=== PATIENT | male | born 1930 | race Caucasian/White ===

== ENCOUNTER 2016-07-21 16:22 | Inpatient (IN) | payer MEDICARE, MEDICAID ==
[~2016-07-21] VITALS: Ht 170.2 cm; Wt 83.9 kg
[~2016-07-21 16:22] MED LIST: ALLO300T2 PO; COLC0.6T69 PO; IBUP-1955 PO; OXYC20TA58 PO; RANI75TA PO
[2016-07-21] MEDS ORDERED: LABETALOL 20 MG/4 ML VIAL IV ONE ×2 (16:30→18:30)
[2016-07-21] MEDS ORDERED: NITROGLYCERIN 0.4 MG/TAB BOTTLE SL ONE (16:30)
[2016-07-21] MEDS ORDERED: NITROGLYCERIN 0.4 MG/TAB BOTTLE ONE (16:34)
[2016-07-21] MEDS ORDERED: LABETALOL HCL IV 100MG VIAL ONE (16:35)
[2016-07-21 16:39] LABS: BASOPHILS # (AUTO) 0.1 /CMM (0.0-0.2); BASOPHILS % (AUTO) 1.2 % (0.0-2.0); DIFF TOTAL % 100 %; EOSINOPHILS # (AUTO) 0.2 /CMM (0.0-0.7); HEMATOCRIT 44 % (39-51); HEMOGLOBIN 14.6 g/dL (13.5-17.5); LYMPHOCYTES % (AUTO) 27.3 % (20.0-44.0); MEAN CORPUSCULAR HEMOGLOBIN 28 PG (26.0-33.0); MEAN CORPUSCULAR HGB CONC 33 g/dl (31.0-36.0); MEAN CORPUSCULAR VOLUME 84 fL (80-96); MONOCYTES # (AUTO) 0.6 /CMM (0.1-1.30); MONOCYTES % (AUTO) 5.5 % (2.0-12.0); PLATELET COUNT (AUTO) 300 /CMM (150-450); RED BLOOD CELL COUNT(AUTO) 5.27 MIL/uL (4.5-6.0); WHITE BLOOD COUNT (AUTO) 10.9 K/uL (4.3-11.0)
[2016-07-21 16:49] LABS: ANION GAP 11 (5-14); CALCIUM, SERUM 8.3 mg/dL (8.5-10.1); CARBON DIOXIDE 28 mmol/L (21-32); CHLORIDE 104 mmol/L (98-107); CREATININE 1.1 mg/dL (0.6-1.3); GLUCOSE 127 mg/dL (74-106); SODIUM SERUM 139 mmol/L (136-145); UREA NITROGEN, BLOOD 26 mg/dL (7-18)
[2016-07-21 16:56] LABS: INR 0.94 (0.87-1.13); PROTHROMBIN TIME 9.9 SECS (9.5-12.7)
[2016-07-21 16:57] LABS: TROPONIN I < 0.017 ng/mL (0.00-0.056)
[2016-07-21] MEDS ORDERED: GABA-534 PO (17:32)
[2016-07-21] MEDS ORDERED: FEXO180T94 PO (17:32)
[2016-07-21] MEDS ORDERED: TRAM50TA2 PO (17:32)
[2016-07-21] MEDS ORDERED: VALS80TA2 PO (17:32)
[2016-07-21] MEDS ORDERED: LORA1TAB PO (17:32)
[2016-07-21] MEDS ORDERED: hydrALAZINE HCL IV 20 MG VIAL ONE (18:46)
[2016-07-21] MEDS ORDERED: COLC0.6T69 PO (18:54)
[2016-07-21] MEDS ORDERED: LORAZEPAM 1 MG TABLET PO PRN (19:00)
[2016-07-21] MEDS ORDERED: MAGNESIUM HYDROXIDE 30 ML UDC PO PRN (19:00)
[2016-07-21] MEDS ORDERED: ONDANSETRON HCL/PF 4 MG/2 ML VIAL IVP PRN (19:00)
[2016-07-21] MEDS ORDERED: MORPHINE SULFATE INJ 2 MG/ML DISP.SYRIN IV PRN (19:00)
[2016-07-21] MEDS ORDERED: HYDROCODONE/APAP 5/325MG 1 EACH TABLET PO PRN (19:00)
[2016-07-21] MEDS ORDERED: Z GUARD REMEDY 2 OZ OINT TP PRN (19:00)
[2016-07-21] MEDS ORDERED: MAG HYDROX/AL HYDROX/SIMETH 30 ML UDC PO PRN (19:00)
[2016-07-21] MEDS ORDERED: hydrALAZINE HCL IV 20 MG VIAL IV ONE (19:00)
[2016-07-21] MEDS ORDERED: ACETAMINOPHEN 325 MG TABLET PO PRN (19:00)
[2016-07-21] MEDS ORDERED: NITROGLYCERIN 0.4 MG/TAB BOTTLE SL PRN (19:00)
[2016-07-21 20:45] VITALS: BP 175/76
[2016-07-21 21:00] VITALS: BP 178/76
[2016-07-21] MEDS ORDERED: SIMVASTATIN 20 MG TABLET ONE ×2 (21:33→21:36)
[2016-07-21] MEDS ORDERED: MAG HYDROX/AL HYDROX/SIMETH 30 ML UDC ONE (21:33)
[2016-07-21] MEDS ORDERED: METOPROLOL TARTRATE 25 MG TABLET ONE (21:34)
[2016-07-21] MEDS: SIMVASTATIN 20 MG TABLET PO SCH (21:43)
[2016-07-21] MEDS: METOPROLOL TARTRATE 25 MG TABLET PO SCH (21:43)
[2016-07-21] MEDS ORDERED: ZOLPIDEM TARTRATE 5 MG TABLET ONE (22:47)
[2016-07-21] MEDS: ZOLPIDEM TARTRATE 5 MG TABLET PO PRN (23:01)
[2016-07-22] VITALS (7 sets, daily range): BP systolic 124–174; BP diastolic 53–75
[2016-07-22] MEDS ORDERED: LORAZEPAM 1 MG TABLET ONE (01:50)
[2016-07-22 07:05] LABS: BASOPHILS % (AUTO) 0.4 % (0.0-2.0); DIFF TOTAL % 100 %; EOSINOPHILS # (AUTO) 0.2 /CMM (0.0-0.7); EOSINOPHILS % (AUTO) 2.2 % (0.0-6.0); HEMATOCRIT 43 % (39-51); HEMOGLOBIN 14.3 g/dL (13.5-17.5); LYMPHOCYTES # (AUTO) 1.9 /CMM (0.8-4.8); MEAN CORPUSCULAR HEMOGLOBIN 28 PG (26.0-33.0); MEAN CORPUSCULAR HGB CONC 33 g/dl (31.0-36.0); MEAN CORPUSCULAR VOLUME 85 fL (80-96); MONOCYTES # (AUTO) 0.7 /CMM (0.1-1.30); NEUTROPHILS # (AUTO) 7.1 /CMM (1.8-8.9); NEUTROPHILS % (AUTO) 71.4 % (43.0-81.0); PLATELET COUNT (AUTO) 253 /CMM (150-450); RED BLOOD CELL COUNT(AUTO) 5.12 MIL/uL (4.5-6.0); WHITE BLOOD COUNT (AUTO) 9.9 K/uL (4.3-11.0)
[2016-07-22 07:13] LABS: CALCIUM, SERUM 8.4 mg/dL (8.5-10.1); PHOSPHORUS 3.4 mg/dL (2.5-4.9); POTASSIUM 4.1 mmol/L (3.5-5.1)
[2016-07-22 07:18] LABS: THYROID STIMULATING HORMONE 0.946 uIU/mL (0.358-3.74)
[2016-07-22] MEDS ORDERED: VALSARTAN 80 MG TABLET PO SCH (09:00)
[2016-07-22] MEDS: PANTOPRAZOLE 40 MG TABLET.DR PO SCH (09:44)
[2016-07-22] MEDS: GABAPENTIN 300 MG CAPSULE PO SCH ×3 (09:44→17:02)
[2016-07-22] MEDS: ASPIRIN 81 MG TAB.CHEW PO SCH (09:44)
[2016-07-22] MEDS: ALLOPURINOL 100 MG TABLET PO SCH ×2 (09:45→17:02)
[2016-07-22] MEDS: METOPROLOL TARTRATE 25 MG TABLET PO SCH ×2 (09:45→21:57)
[2016-07-22] MEDS ORDERED: SALINE NASAL SPRAY 0.65% 1 BOTTLE BOTTLE NS PRN (12:00)
[2016-07-22] MEDS: FUROSEMIDE 40 MG/4 ML VIAL IV SCH ×3 (12:36→20:26)
[2016-07-22] MEDS: POTASSIUM CHLORIDE 20 MEQ TAB.PRT.SR PO SCH ×3 (12:36→15:27)
[2016-07-22] MEDS: hydrALAZINE HCL 50 MG TABLET PO SCH ×2 (12:38→17:02)
[2016-07-22] MEDS: ZOLPIDEM TARTRATE 5 MG TABLET PO PRN (21:56)
[2016-07-22] MEDS: SIMVASTATIN 20 MG TABLET PO SCH (21:56)
[2016-07-23 06:44] LABS: BASOPHILS % (AUTO) 0.1 % (0.0-2.0); DIFF TOTAL % 100 %; EOSINOPHILS # (AUTO) 0.2 /CMM (0.0-0.7); EOSINOPHILS % (AUTO) 1.8 % (0.0-6.0); HEMATOCRIT 43 % (39-51); HEMOGLOBIN 14.3 g/dL (13.5-17.5); LYMPHOCYTES % (AUTO) 17.5 % (20.0-44.0); MEAN CORPUSCULAR HEMOGLOBIN 28 PG (26.0-33.0); MEAN CORPUSCULAR HGB CONC 33 g/dl (31.0-36.0); MEAN CORPUSCULAR VOLUME 85 fL (80-96); MONOCYTES # (AUTO) 0.7 /CMM (0.1-1.30); MONOCYTES % (AUTO) 6.5 % (2.0-12.0); NEUTROPHILS # (AUTO) 8.5 /CMM (1.8-8.9); NEUTROPHILS % (AUTO) 74.1 % (43.0-81.0); PLATELET COUNT (AUTO) 287 /CMM (150-450); RED BLOOD CELL COUNT(AUTO) 5.11 MIL/uL (4.5-6.0); WHITE BLOOD COUNT (AUTO) 11.4 K/uL (4.3-11.0)
[2016-07-23 07:02] LABS: TROPONIN I 0.028 ng/mL (0.00-0.056)
[2016-07-23 07:09] LABS: ALBUMIN 3.5 g/dL (3.4-5.0); BILIRUBIN,TOTAL 0.7 mg/dL (0.2-1.0); CALCIUM, SERUM 8.3 mg/dL (8.5-10.1); CREATININE 2.2 mg/dL (0.6-1.3); POTASSIUM 4.7 mmol/L (3.5-5.1); TOTAL PROTEIN, SERUM 6.4 g/dL (6.4-8.2)
[2016-07-23 08:00] VITALS: BP 137/64
[2016-07-23] MEDS ORDERED: ISOSORBIDE DINITRATE (20MG) 20 MG TABLET PO SCH (09:00)
[2016-07-23] MEDS ORDERED: VALSARTAN 80 MG TABLET PO SCH (09:00)
[2016-07-23] MEDS: PANTOPRAZOLE 40 MG TABLET.DR PO SCH (09:00)
[2016-07-23] MEDS: ASPIRIN 81 MG TAB.CHEW PO SCH (09:00)
[2016-07-23] MEDS: GABAPENTIN 300 MG CAPSULE PO SCH ×2 (09:00→13:00)
[2016-07-23] MEDS: hydrALAZINE HCL 50 MG TABLET PO SCH ×2 (09:00→13:00)
[2016-07-23 09:01] VITALS: BP 137/64
[2016-07-23] MEDS: METOPROLOL TARTRATE 25 MG TABLET PO SCH (09:01)
[2016-07-23] MEDS: ALLOPURINOL 100 MG TABLET PO SCH (09:01)
[2016-07-23] MEDS ORDERED: Isosorbide Dinitrate PO (12:13)
[2016-07-23] MEDS ORDERED: Nitroglycerin SL (12:13)
[2016-07-23] MEDS ORDERED: Hydralazine Hcl PO (12:13)
[2016-07-23] MEDS ORDERED: METO25TA20 PO (12:13)
== END 2016-07-23 14:46 | disposition home or self-care (01) | DRG 302 ==
LOC: ER 16:24 → TELE 20:37 → MED 07-22 13:20
DX: I25.10 Atherosclerotic heart disease of native coronary artery without angina pectoris (principal); N17.0 Acute kidney failure with tubular necrosis; I50.33 Acute on chronic diastolic (congestive) heart failure; I16.0 Hypertensive urgency; E66.9 Obesity, unspecified; M10.9 Gout, unspecified; Z95.1 Presence of aortocoronary bypass graft; Z87.891 Personal history of nicotine dependence; E66.8 Other obesity; I11.0 Hypertensive heart disease with heart failure; I70.1 Atherosclerosis of renal artery
CPT/HCPCS: 36415; 71010-TC; 80048-TC; 80053-TC; 80061-TC; 82962-TC; 83735-TC; 83880; 84100-TC; 84439-TC; 84443-TC; 84484-TC; 85025-TC; 85730-TC; 87081-TC; 93307-TC; 94799-TC; A4606; J0360; J1940; J3490; Z7610

== ENCOUNTER 2016-08-05 13:36 | Inpatient (IN) | payer MEDICARE, MEDICAID ==
[~2016-08-05] VITALS: Ht 160 cm; Wt 94.8 kg
[~2016-08-05 13:36] MED LIST changes: +FEXO180T94 PO; +GABA-534 PO; +Hydralazine Hcl PO; +Isosorbide Dinitrate PO; +LORA1TAB PO; +METO25TA20 PO; +Nitroglycerin SL; -OXYC20TA58 PO; -RANI75TA PO; +TRAM50TA2 PO
[2016-08-05] MEDS ORDERED: LORAZEPAM INJ 2 MG/ML VIAL ONE (13:58)
[2016-08-05] MEDS ORDERED: LORAZEPAM INJ 2 MG/ML VIAL IV ONE (14:00)
[2016-08-05 14:14] LABS: BASOPHILS % (AUTO) 0.3 % (0.0-2.0); DIFF TOTAL % 100 %; EOSINOPHILS # (AUTO) 0.2 /CMM (0.0-0.7); EOSINOPHILS % (AUTO) 2.7 % (0.0-6.0); HEMATOCRIT 36 % (39-51); HEMOGLOBIN 12.2 g/dL (13.5-17.5); LYMPHOCYTES # (AUTO) 1.3 /CMM (0.8-4.8); LYMPHOCYTES % (AUTO) 15.8 % (20.0-44.0); MEAN CORPUSCULAR HEMOGLOBIN 28 PG (26.0-33.0); MEAN CORPUSCULAR HGB CONC 34 g/dl (31.0-36.0); MEAN CORPUSCULAR VOLUME 83 fL (80-96); MONOCYTES # (AUTO) 0.5 /CMM (0.1-1.30); NEUTROPHILS # (AUTO) 6.5 /CMM (1.8-8.9); NEUTROPHILS % (AUTO) 75.2 % (43.0-81.0); PLATELET COUNT (AUTO) 309 /CMM (150-450); RED BLOOD CELL COUNT(AUTO) 4.36 MIL/uL (4.5-6.0); WHITE BLOOD COUNT (AUTO) 8.5 K/uL (4.3-11.0)
[2016-08-05] MEDS ORDERED: METO25TA20 PO (14:18)
[2016-08-05] MEDS ORDERED: TAMS-12 PO (14:18)
[2016-08-05] MEDS ORDERED: HYDR-548 PO (14:18)
[2016-08-05] MEDS ORDERED: HYDR100T27 PO (14:18)
[2016-08-05] MEDS ORDERED: FINA5TAB11 PO (14:18)
[2016-08-05] MEDS ORDERED: ISOS40TA16 PO (14:18)
[2016-08-05] MEDS ORDERED: RANI150T8 PO (14:18)
[2016-08-05 14:24] LABS: CALCIUM, SERUM 8.4 mg/dL (8.5-10.1); CREATININE 1.3 mg/dL (0.6-1.3); POTASSIUM 4.5 mmol/L (3.5-5.1)
[2016-08-05 14:27] LABS: INR 0.95 (0.87-1.13)
[2016-08-05 14:31] LABS: TROPONIN I 0.055 ng/mL (0.00-0.056)
[2016-08-05 14:36] LABS: ALBUMIN 3.3 g/dL (3.4-5.0); BILIRUBIN,DIRECT 0.1 mg/dL (0.0-0.2); BILIRUBIN,TOTAL 0.3 mg/dL (0.2-1.0); INDIRECT BILIRUBIN 0.2 mg/dL (0.0-1.1); TOTAL PROTEIN, SERUM 6.2 g/dL (6.4-8.2)
[2016-08-05] MEDS ORDERED: ISOS20TA8 PO (14:40)
[2016-08-05] MEDS ORDERED: FUROSEMIDE 40 MG/4 ML VIAL ONE (14:54)
[2016-08-05] MEDS ORDERED: FUROSEMIDE 40 MG/4 ML VIAL IV ONE (15:00)
[2016-08-05] MEDS ORDERED: ACETAMINOPHEN ES 500 MG TABLET PO PRN (17:30)
[2016-08-05] MEDS: AMYLASE/LIPASE/PROTEASE 1 CAP CAPSULE.DR PO SCH (18:48)
[2016-08-05] MEDS ORDERED: Magnesium 1 GM/2 ML VIAL IV ONE (19:30)
[2016-08-05 20:00] VITALS: BP_SYST 177; BP_SYST 179; BP_DIAS 80
[2016-08-05] MEDS ORDERED: Magnesium 1GM/D5W 100ML PREMIX 100 ML IV SCH ×2 (20:00)
[2016-08-05] MEDS ORDERED: TRAMADOL HCL 50 MG TABLET PO PRN (20:30)
[2016-08-05] MEDS ORDERED: HOME MED MISCELLANEOUS XX SCH (20:30)
[2016-08-05] MEDS ORDERED: HYDROCODONE/APAP 10/325MG 1 EA TABLET PO PRN (20:30)
[2016-08-05] MEDS: LORAZEPAM 1 MG TABLET PO PRN (20:52)
[2016-08-05] MEDS: FAMOTIDINE (20 MG) 20 MG TABLET PO SCH (20:52)
[2016-08-05] MEDS: DILTIAZEM HCL CD 120 MG PO SCH (20:53)
[2016-08-05] MEDS: IPRATROPIUM NEB FS 0.5 MG/2.5 ML AMPUL.NEB NEB SCH (23:22)
[2016-08-05] MEDS ORDERED: ALBUTEROL FS 2.5 MG/0.5 ML VIAL.NEB NEB PRN (23:30)
[2016-08-05] MEDS ORDERED: LORAZEPAM 1 MG TABLET PO ONE (23:30)
[2016-08-06] VITALS (8 sets, daily range): BP systolic 128–181; BP diastolic 57–98
[2016-08-06] MEDS ORDERED: FUROSEMIDE 40 MG/4 ML VIAL IV ONE (00:30)
[2016-08-06 06:45] LABS: BASOPHILS % (AUTO) 0.4 % (0.0-2.0); DIFF TOTAL % 100 %; EOSINOPHILS # (AUTO) 0.3 /CMM (0.0-0.7); EOSINOPHILS % (AUTO) 3.5 % (0.0-6.0); HEMATOCRIT 39 % (39-51); HEMOGLOBIN 12.8 g/dL (13.5-17.5); LYMPHOCYTES % (AUTO) 23.5 % (20.0-44.0); MEAN CORPUSCULAR HEMOGLOBIN 28 PG (26.0-33.0); MEAN CORPUSCULAR HGB CONC 33 g/dl (31.0-36.0); MEAN CORPUSCULAR VOLUME 84 fL (80-96); MONOCYTES # (AUTO) 0.6 /CMM (0.1-1.30); MONOCYTES % (AUTO) 6.8 % (2.0-12.0); NEUTROPHILS # (AUTO) 5.6 /CMM (1.8-8.9); NEUTROPHILS % (AUTO) 65.8 % (43.0-81.0); PLATELET COUNT (AUTO) 316 /CMM (150-450); RED BLOOD CELL COUNT(AUTO) 4.64 MIL/uL (4.5-6.0); WHITE BLOOD COUNT (AUTO) 8.5 K/uL (4.3-11.0)
[2016-08-06 07:07] LABS: CALCIUM, SERUM 8.3 mg/dL (8.5-10.1); CREATININE 1.5 mg/dL (0.6-1.3); POTASSIUM 4.1 mmol/L (3.5-5.1)
[2016-08-06] MEDS: IPRATROPIUM NEB FS 0.5 MG/2.5 ML AMPUL.NEB NEB SCH ×3 (07:33→23:29)
[2016-08-06] MEDS: FLUTICASONE/SALMETEROL DISKUS IH SCH (08:34)
[2016-08-06] MEDS: SPIRONOLACTONE 25 MG TABLET PO SCH (08:35)
[2016-08-06] MEDS: AMYLASE/LIPASE/PROTEASE 1 CAP CAPSULE.DR PO SCH ×3 (08:35→17:21)
[2016-08-06] MEDS: HYDROCHLOROTHIAZIDE 25 MG TABLET PO SCH (08:35)
[2016-08-06] MEDS: ALLOPURINOL 100 MG TABLET PO SCH ×2 (08:35→17:21)
[2016-08-06] MEDS: FAMOTIDINE (20 MG) 20 MG TABLET PO SCH ×2 (08:35→21:16)
[2016-08-06] MEDS: TAMSULOSIN 0.4 MG CAP.SR.24H PO SCH (08:36)
[2016-08-06] MEDS: FINASTERIDE (5 MG) 5 MG TABLET PO SCH (08:36)
[2016-08-06] MEDS: ISOSORBIDE DINITRATE (20MG) 20 MG TABLET PO SCH (08:36)
[2016-08-06] MEDS: hydrALAZINE HCL 50 MG TABLET PO SCH ×2 (08:36→17:25)
[2016-08-06] MEDS ORDERED: METOPROLOL TARTRATE 25 MG TABLET PO SCH (09:00)
[2016-08-06] MEDS ORDERED: ENALAPRIL MALEATE (10 MG) 10 MG TABLET PO SCH (09:00)
[2016-08-06] MEDS: VALSARTAN 80 MG TABLET PO SCH (09:58)
[2016-08-06] MEDS: LORAZEPAM 1 MG TABLET PO PRN ×2 (09:59→19:32)
[2016-08-06] MEDS: METOPROLOL TARTRATE 25 MG TABLET PO SCH ×2 (09:59→17:25)
[2016-08-06] MEDS: DILTIAZEM HCL CD 120 MG PO SCH (21:16)
[2016-08-06] MEDS ORDERED: Magnesium 1GM/D5W 100ML PREMIX 100 ML IV ONE ×2 (21:39→22:46)
[2016-08-06] MEDS ORDERED: MIRTAZAPINE 15 MG TABLET ONE (21:40)
[2016-08-06] MEDS ORDERED: MIRTAZAPINE 15 MG TABLET PO SCH (22:00)
[2016-08-06] MEDS: Magnesium 1GM/D5W 100ML PREMIX 100 ML IV SCH ×2 (22:10→23:04)
[2016-08-07 06:54] LABS: BASOPHILS % (AUTO) 0.4 % (0.0-2.0); DIFF TOTAL % 100 %; EOSINOPHILS # (AUTO) 0.4 /CMM (0.0-0.7); EOSINOPHILS % (AUTO) 3.5 % (0.0-6.0); HEMATOCRIT 37 % (39-51); HEMOGLOBIN 12.4 g/dL (13.5-17.5); LYMPHOCYTES # (AUTO) 1.7 /CMM (0.8-4.8); LYMPHOCYTES % (AUTO) 16.8 % (20.0-44.0); MEAN CORPUSCULAR HEMOGLOBIN 28 PG (26.0-33.0); MEAN CORPUSCULAR HGB CONC 33 g/dl (31.0-36.0); MEAN CORPUSCULAR VOLUME 84 fL (80-96); MONOCYTES # (AUTO) 0.6 /CMM (0.1-1.30); MONOCYTES % (AUTO) 6.4 % (2.0-12.0); NEUTROPHILS # (AUTO) 7.3 /CMM (1.8-8.9); NEUTROPHILS % (AUTO) 72.9 % (43.0-81.0); PLATELET COUNT (AUTO) 305 /CMM (150-450); RED BLOOD CELL COUNT(AUTO) 4.43 MIL/uL (4.5-6.0)
[2016-08-07 07:21] LABS: ALBUMIN 3.2 g/dL (3.4-5.0); BILIRUBIN,TOTAL 0.3 mg/dL (0.2-1.0); CALCIUM, SERUM 8.2 mg/dL (8.5-10.1); CREATININE 1.6 mg/dL (0.6-1.3); PHOSPHORUS 3.9 mg/dL (2.5-4.9); POTASSIUM 3.8 mmol/L (3.5-5.1); TOTAL PROTEIN, SERUM 6.1 g/dL (6.4-8.2)
[2016-08-07] MEDS: IPRATROPIUM NEB FS 0.5 MG/2.5 ML AMPUL.NEB NEB SCH ×2 (07:34→16:18)
[2016-08-07 07:45] VITALS: BP 147/71
[2016-08-07 08:00] VITALS: BP 147/71
[2016-08-07] MEDS: ALLOPURINOL 100 MG TABLET PO SCH ×2 (08:50→16:32)
[2016-08-07] MEDS: FAMOTIDINE (20 MG) 20 MG TABLET PO SCH (08:50)
[2016-08-07] MEDS: AMYLASE/LIPASE/PROTEASE 1 CAP CAPSULE.DR PO SCH ×3 (08:50→17:41)
[2016-08-07] MEDS: TAMSULOSIN 0.4 MG CAP.SR.24H PO SCH (08:50)
[2016-08-07] MEDS: FINASTERIDE (5 MG) 5 MG TABLET PO SCH (08:50)
[2016-08-07] MEDS: HYDROCHLOROTHIAZIDE 25 MG TABLET PO SCH (08:51)
[2016-08-07] MEDS: METOPROLOL TARTRATE 25 MG TABLET PO SCH ×2 (08:52→16:32)
[2016-08-07] MEDS: SPIRONOLACTONE 25 MG TABLET PO SCH (08:52)
[2016-08-07] MEDS: hydrALAZINE HCL 50 MG TABLET PO SCH ×2 (08:52→16:32)
[2016-08-07] MEDS: ISOSORBIDE DINITRATE (20MG) 20 MG TABLET PO SCH (08:52)
[2016-08-07] MEDS: VALSARTAN 80 MG TABLET PO SCH (08:52)
[2016-08-07] MEDS: FLUTICASONE/SALMETEROL DISKUS IH SCH (08:54)
[2016-08-07] MEDS ORDERED: BUMETANIDE INJ 8 MG in IV NS 0.9% 48 ML IV ONE (09:00)
[2016-08-07] MEDS: POTASSIUM CHLORIDE 20 MEQ TAB.PRT.SR PO SCH ×3 (09:13→11:21)
[2016-08-07] MEDS ORDERED: ASPI81TA2 PO (09:29)
[2016-08-07] MEDS ORDERED: ATOR40TA GT (09:29)
[2016-08-07 16:00] VITALS: BP_SYST 132; BP_SYST 136; BP_DIAS 62; BP_DIAS 64
[2016-08-07 16:32] VITALS: BP 132/64
== END 2016-08-07 18:00 | disposition home or self-care (01) | DRG 304 ==
LOC: ER 13:38 → TELE 16:22 → MED 08-06 10:01
PROVIDERS: ADMIT Family Medicine; ATTEND Family Medicine
DX: I16.0 Hypertensive urgency (principal); I50.43 Acute on chronic combined systolic (congestive) and diastolic (congestive) heart failure; N17.0 Acute kidney failure with tubular necrosis; K90.9 Intestinal malabsorption, unspecified; J98.11 Atelectasis; I13.0 Hypertensive heart and chronic kidney disease with heart failure and stage 1 through stage 4 chronic kidney disease, or unspecified chronic kidney disease; N18.9 Chronic kidney disease, unspecified; Z96.659 Presence of unspecified artificial knee joint; Z95.1 Presence of aortocoronary bypass graft; F17.210 Nicotine dependence, cigarettes, uncomplicated; F41.0 Panic disorder [episodic paroxysmal anxiety]; E78.5 Hyperlipidemia, unspecified; G47.33 Obstructive sleep apnea (adult) (pediatric); K21.9 Gastro-esophageal reflux disease without esophagitis; Z91.19 Patient's noncompliance with other medical treatment and regimen; H91.90 Unspecified hearing loss, unspecified ear; I25.119 Atherosclerotic heart disease of native coronary artery with unspecified angina pectoris; M10.9 Gout, unspecified; M54.5 Low back pain; M81.0 Age-related osteoporosis without current pathological fracture; N40.0 Benign prostatic hyperplasia without lower urinary tract symptoms; Z86.73 Personal history of transient ischemic attack (TIA), and cerebral infarction without residual deficits
CPT/HCPCS: 36415; 71010-TC; 80048-TC; 80053-TC; 80076-TC; 83540-TC; 83735-TC; 83880; 84100-TC; 84484-TC; 85025-TC; 85730-TC; 87081-TC; 94799-TC; A4216; A4606; J1940; J2060; J3475; J3490; Z7610

== ENCOUNTER 2017-01-06 11:44 | Inpatient (IN) | payer MEDICARE, MEDICAID ==
[~2017-01-06] VITALS: Ht 167.6 cm; Wt 86.2 kg
[~2017-01-06 11:44] MED LIST changes: +ASPI81TA2 PO; +ATOR40TA GT; -COLC0.6T69 PO; -FEXO180T94 PO; +FINA5TAB11 PO; -GABA-534 PO; +HYDR-548 PO; +HYDR100T27 PO; -Hydralazine Hcl PO; -IBUP-1955 PO; +ISOS20TA8 PO; -Isosorbide Dinitrate PO; -METO25TA20 PO; -Nitroglycerin SL; +RANI150T8 PO; +TAMS-12 PO
--- NOTE | 2017-01-06 11:50 | NUR ---
PATIENT BIB RA D/T CHEST PAIN SINCE 0700. PATIENT RECEIVED 2 SPRAYS NITRO AND 162MG ASA. PATIENT IS A/OX 4. BREATHING EVEN AND UNLABORED. SAFETY AND COMFORT MEASURES IN PLACE. AWAITING MD ORDERS.
[2017-01-06] MEDS ORDERED: LORAZEPAM 1 MG TABLET ONE (11:59)
[2017-01-06] MEDS ORDERED: ASPIRIN 325 MG TABLET ONE (11:59)
[2017-01-06] MEDS ORDERED: NITROGLYCERIN 0.4 MG/TAB BOTTLE SL ONE (12:00)
[2017-01-06] MEDS ORDERED: NITROGLYCERIN 0.4 MG/TAB BOTTLE ONE (12:00)
[2017-01-06] MEDS ORDERED: ASPIRIN 325 MG TABLET PO ONE (12:00)
[2017-01-06] MEDS ORDERED: LORAZEPAM 1 MG TABLET PO ONE (12:00)
--- NOTE | 2017-01-06 12:00 | NUR ---
PATIENT DENIES ANY CHEST PAIN AT THIS TIME. BLOOD PRESSURE IS 102/49. NITRO SL NOT ADMINSITERED AT THIS TIME.
[2017-01-06 12:06] LABS: BASOPHILS # (AUTO) 0.1 /CMM (0.0-0.2); BASOPHILS % (AUTO) 1.2 % (0.0-2.0); EOSINOPHILS # (AUTO) 0.2 /CMM (0.0-0.7); EOSINOPHILS % (AUTO) 2.4 % (0.0-6.0); HEMATOCRIT 38 % (39-51); HEMOGLOBIN 12.4 g/dL (13.5-17.5); LYMPHOCYTES % (AUTO) 31.3 % (20.0-44.0); MEAN CORPUSCULAR HEMOGLOBIN 27 PG (26.0-33.0); MEAN CORPUSCULAR HGB CONC 33 g/dl (31.0-36.0); MEAN CORPUSCULAR VOLUME 82 fL (80-96); MONOCYTES # (AUTO) 0.5 /CMM (0.1-1.30); MONOCYTES % (AUTO) 5.6 % (2.0-12.0); NEUTROPHILS # (AUTO) 5.8 /CMM (1.8-8.9); NEUTROPHILS % (AUTO) 59.5 % (43.0-81.0); PLATELET COUNT (AUTO) 353 /CMM (150-450); RDW COEFFICIENT OF VARIATION 13.6 (11.5-15.0); RED BLOOD CELL COUNT(AUTO) 4.61 MIL/uL (4.5-6.0); WHITE BLOOD COUNT (AUTO) 9.6 K/uL (4.3-11.0)
[2017-01-06 12:20] LABS: INR 0.97 (0.87-1.13); PROTHROMBIN TIME 10.1 SECS (9.5-12.7)
[2017-01-06 12:24] LABS: TROPONIN I < 0.017 ng/mL (0.00-0.056)
[2017-01-06 12:29] LABS: CALCIUM, SERUM 8.2 mg/dL (8.5-10.1); CARBON DIOXIDE 24 mmol/L (21-32); CHLORIDE 110 mmol/L (98-107); CREATININE 1.5 mg/dL (0.6-1.3); GLUCOSE 176 mg/dL (74-106); POTASSIUM 4.1 mmol/L (3.5-5.1); SODIUM SERUM 141 mmol/L (136-145); UREA NITROGEN, BLOOD 22 mg/dL (7-18)
[2017-01-06 12:31] LABS: B-TYPE NATRIURETIC PEPTIDE 790 PG/ML (0-125)
--- NOTE | 2017-01-06 12:57 | NUR ---
CALLED , TRANSFERRED CALL TO
--- NOTE | 2017-01-06 13:42 | NUR ---
REPORT GIVEN TO SHAINA CORRAL. PATIENT TO BE ADMITTED TO ROOM 113-1.
--- NOTE | 2017-01-06 13:51 | NUR ---
PATIENT TRANSFERRED TO [facility], VIA STRETCHER WITH RN AND EMT.
[2017-01-06 14:00] VITALS: BP 152/60
--- NOTE | 2017-01-06 14:00 | NUR ---
RN NOTES RECEIVED PT IN ROOM 113-1 FROM ER, PT IS A/Ox3, RESPIRATION EVEN AND UNLABORED, PLACE ON 2L O3 N/C FOR COMFORT, ON TELE PT IS SR WITH FIRST DEGREE AVB, IN 70'S, DENIES ANY CHEST PAIN AT THIS TIME, L AC IV SITE #20 CDI. R EYE REDNESS NOTED, PICTURE TAKEN , NO SKIN ISSUE NOTED , ORIENTED TO ROOM AND SURROUNDING , SR UP x3, CALL LIGHT WITHIN EASY REACH, CONTINUE TO MONITOR PT CLOSELY AND NOTIFY MD FOR ANY SIGNIFICANT CHANGES .
[2017-01-06 15:30] LABS: MAGNESIUM 1.6 mg/dL (1.8-2.4); PHOSPHORUS 2.4 mg/dL (2.5-4.9)
[2017-01-06 15:32] LABS: THYROID STIMULATING HORMONE 0.779 uIU/mL (0.358-3.74)
[2017-01-06] MEDS: FUROSEMIDE 20 MG/2 ML VIAL IV SCH ×2 (15:33→16:58)
[2017-01-06 16:00] VITALS: BP 141/56
[2017-01-06] MEDS ORDERED: HYDROCODONE/APAP 10/325MG 1 EA TABLET PO PRN (16:00)
[2017-01-06] MEDS ORDERED: TRAMADOL HCL 50 MG TABLET PO PRN (16:00)
[2017-01-06] MEDS ORDERED: LORAZEPAM 1 MG TABLET PO PRN ×2 (16:00)
[2017-01-06] MEDS: hydrALAZINE HCL 50 MG TABLET PO SCH (16:58)
--- NOTE | 2017-01-06 18:54 | NUR ---
RN NOTES PT STABLE ,DENICE ANY DISTRESS , RESPIRATION EVEN AND UNLABORED ,NO CHANGES NOTED .
[2017-01-06 20:00] VITALS: BP 150/60
--- NOTE | 2017-01-06 20:00 | NUR ---
RECEIVED PATIENT IN BED, PATIENT A&O X4, MOSTLY ROMANIAN SPEAKING WITH DAUGHTER AT THE BEDSIDE. VSS, AFEBRILE, NO DISTRESS NOTED SAT. 95% ON 2L VIA NC. EDUCATION/ INSTRUCTIONS GIVEN TO THE PATIENT AND A DAUGHTER, QUESTIONS ANSWERED, WENT OVER HOME MEDS NEES TO FOLLOW UP W/ A PHYSICIAN.
[2017-01-06] MEDS ORDERED: Magnesium 1GM/D5W 100ML PREMIX PIGGYBACK IV ONE (20:30)
[2017-01-06] MEDS ORDERED: NEUTRA PHOS 1 POWD.PACKET PO ONE (20:30)
--- NOTE | 2017-01-06 20:30 | NUR ---
DR. KAUR NOTIFIED OF LABS RESULTS, ORDERS RECEIVED
[2017-01-06] MEDS ORDERED: SECONDARY IV SET 1 EA INFUS.SET MC ONE (20:32)
[2017-01-06] MEDS ORDERED: IV NS 0.9% 250 ML IV ONE (20:32)
[2017-01-06] MEDS: FAMOTIDINE (20 MG) 20 MG TABLET PO SCH (20:39)
[2017-01-06] MEDS: GABAPENTIN 300 MG CAPSULE PO SCH (20:39)
[2017-01-06] MEDS ORDERED: ATORVASTATIN 40 MG TABLET GT SCH (22:00)
[2017-01-07] VITALS (8 sets, daily range): BP systolic 114–167; BP diastolic 48–75
--- NOTE | 2017-01-07 | NUR ---
ATIVAN IS GIVEN FOR SLEEP ORDERED AND FOR PATIENT REQUEST CONTINUE TO MONITOR
--- NOTE | 2017-01-07 08:00 | NUR ---
COAL DELIVERER: PT.IS A/OX3, NO C/O, NO ANY PAIN, O2SAT. WNL, SR, BP 167/75, I/O -1.1L, IS IN ROOM, UPDATED WITH PT.CURRENT CONDITION, VS, I/O, 2DECHO PENDING, MEDS. OK TO ORDER LABS FOR TODAY AFTER 2GM MG IV DOSE. SEE NEW ORDERS
[2017-01-07] MEDS: FUROSEMIDE 20 MG/2 ML VIAL IV SCH ×2 (08:07→17:28)
[2017-01-07] MEDS: FAMOTIDINE (20 MG) 20 MG TABLET PO SCH (08:08)
[2017-01-07] MEDS: hydrALAZINE HCL 50 MG TABLET PO SCH ×2 (08:08→17:28)
[2017-01-07] MEDS: GABAPENTIN 300 MG CAPSULE PO SCH ×3 (08:08→17:28)
[2017-01-07] MEDS: ALLOPURINOL 100 MG TABLET PO SCH ×2 (08:08→17:28)
--- NOTE | 2017-01-07 08:45 | NUR ---
RN GODFREY: PT.DAUGHTER CALLED, UPDATED WITH PT.CONDITION, VS, ORDERS, VISIT, POC
[2017-01-07] MEDS ORDERED: FINASTERIDE (5 MG) 5 MG TABLET PO SCH (09:00)
[2017-01-07] MEDS ORDERED: NEUTRA PHOS 1 POWD.PACKET PO ONE (09:00)
[2017-01-07] MEDS ORDERED: TAMSULOSIN 0.4 MG CAP.SR.24H PO SCH (09:00)
[2017-01-07] MEDS ORDERED: ASPIRIN 81 MG TAB.CHEW PO SCH (09:00)
[2017-01-07] MEDS ORDERED: ISOSORBIDE DINITRATE (20MG) 20 MG TABLET PO SCH (09:00)
[2017-01-07] MEDS ORDERED: Magnesium 1GM/D5W 100ML PREMIX PIGGYBACK IV ONE (09:00)
[2017-01-07] MEDS ORDERED: LOSARTAN/HCTZ 50-12.5MG/ 1 EA TABLET PO SCH (09:00)
[2017-01-07] MEDS ORDERED: CARVEDILOL 6.25 MG TABLET PO SCH (09:00)
[2017-01-07] MEDS ORDERED: HYDR-4077 PO (09:03)
[2017-01-07] MEDS ORDERED: LOSA1TAB3 PO (09:03)
[2017-01-07] MEDS ORDERED: HYDR-3658 PO (09:03)
[2017-01-07] MEDS ORDERED: ISOS20TA8 PO (09:03)
[2017-01-07] MEDS ORDERED: LORA1TAB PO (09:03)
[2017-01-07] MEDS ORDERED: FAMO20TA80 PO (09:03)
[2017-01-07] MEDS ORDERED: CARV6.252 PO (09:03)
[2017-01-07] MEDS ORDERED: FURO10VI PO (09:03)
[2017-01-07] MEDS ORDERED: FINA5TAB3 PO (09:03)
[2017-01-07] MEDS ORDERED: GABA300C PO (09:03)
[2017-01-07] MEDS ORDERED: TAMS-12 PO (09:03)
[2017-01-07] MEDS ORDERED: TRAM50TA2 PO (09:03)
--- NOTE | 2017-01-07 10:10 | NUR ---
RN GODFREY: IS IN ROOM, UPDATED WITH ALL ABOVE, NEW MEDS, AGREE FOR D/C
[2017-01-07] MEDS ORDERED: CLOPIDOGREL BISULFATE 75 MG TABLET PO SCH (11:00)
[2017-01-07 11:20] LABS: CHOLESTEROL 196 mg/dL (<200); HDL CHOLESTEROL 23 mg/dL (40-60); LDL 95 mg/dL (0-99); TRIGLYCERIDES 331 mg/dL (30-150)
--- NOTE | 2017-01-07 14:20 | NUR ---
RN GODFREY: pt.is A/Ox3, no c/o, no pain, SR, SBP over 100, below 150, O2sat. WNL, got d/c instructions
--- NOTE | 2017-01-07 18:00 | NUR ---
RN GODFREY: pt.got d/c package, instructions, list of meds was rechecked (Dr.Koshkaryan harrell Plavix, new), pt.confirmed: getting plavix 75mg PO daily, same dose, aware re: new meds, refused vaccination, checked notes: pt. needs to visit in 4 days, pt.daughter is in room/aware for above, VSS, no c/o now
== END 2017-01-07 18:31 | disposition home or self-care (01) | DRG 291 ==
LOC: ER 11:45 → TELE1 13:19
PROVIDERS: ADMIT Family Medicine; ATTEND Family Medicine
DX: I13.0 Hypertensive heart and chronic kidney disease with heart failure and stage 1 through stage 4 chronic kidney disease, or unspecified chronic kidney disease (principal); I50.33 Acute on chronic diastolic (congestive) heart failure; K90.9 Intestinal malabsorption, unspecified; I50.1 Left ventricular failure, unspecified; I16.0 Hypertensive urgency; E11.22 Type 2 diabetes mellitus with diabetic chronic kidney disease; E78.5 Hyperlipidemia, unspecified; I25.119 Atherosclerotic heart disease of native coronary artery with unspecified angina pectoris; J44.9 Chronic obstructive pulmonary disease, unspecified; N18.9 Chronic kidney disease, unspecified; M81.0 Age-related osteoporosis without current pathological fracture; Z87.891 Personal history of nicotine dependence; Z91.19 Patient's noncompliance with other medical treatment and regimen; Z95.1 Presence of aortocoronary bypass graft; Z86.73 Personal history of transient ischemic attack (TIA), and cerebral infarction without residual deficits; Z98.61 Coronary angioplasty status; K21.9 Gastro-esophageal reflux disease without esophagitis; I27.2 Other secondary pulmonary hypertension; F41.0 Panic disorder [episodic paroxysmal anxiety]; E83.42 Hypomagnesemia; E11.51 Type 2 diabetes mellitus with diabetic peripheral angiopathy without gangrene; M17.0 Bilateral primary osteoarthritis of knee; F03.90 Unspecified dementia, unspecified severity, without behavioral disturbance, psychotic disturbance, mood disturbance, and anxiety; G47.30 Sleep apnea, unspecified; H91.90 Unspecified hearing loss, unspecified ear; M10.9 Gout, unspecified; N40.0 Benign prostatic hyperplasia without lower urinary tract symptoms; Z96.652 Presence of left artificial knee joint; F43.10 Post-traumatic stress disorder, unspecified
CPT/HCPCS: 36415; 71010-TC; 80048-TC; 80061-TC; 83735-TC; 83880; 84100-TC; 84443-TC; 84484-TC; 85025-TC; 85730-TC; 87081-TC; 93307-TC; A4606; A6402; J1940; J3475; J7050; Z7610

== ENCOUNTER 2019-08-16 20:15 | Inpatient (IN) | payer MEDICARE, MEDICAID ==
[~2019-08-16] VITALS: Ht 165.1 cm; Wt 81.2 kg
[~2019-08-16 20:15] MED LIST changes: +ASPI-1169 PO; -ASPI81TA2 PO; +FAMO20TA80 PO; +FINA5TAB3 PO; +FURO10VI PO; +GABA300C PO; +HYDR-3980 PO; +HYDR-4077 PO; +HYDR-4354 PO; -HYDR-548 PO; +LOSA1TAB3 PO
--- NOTE | 2019-08-16 20:43 | NUR ---
BIBRA39. RESOLVED CHEST PAIN. TOOK 1 NITRO SL @ 6PM. WEAKNESS & DIZZYNESS AFTER TAKING VALIUM AT 6PM. DENIES SOB. DENIES ABDOMINAL PAIN, N/V. SKIN WARM, DRY, INTACT. NO ACUTE DISTRESS NOTED, NO OTHER MEDICAL COMPLAINTS AT THIS TIME. FAMILY AT BEDSIDE. ON MONITOR AND READY FOR EVAL.
--- NOTE | 2019-08-16 21:05 | NUR ---
URINE SENT TO STAT LAB
[2019-08-16] MEDS ORDERED: LIDOCAINE 2% JEL UROJET 10 ML MM ONE ×2 (21:20→21:30)
[2019-08-16 21:30] LABS: BASOPHILS # (AUTO) 0.2 /CMM (0.0-0.2); BASOPHILS % (AUTO) 1.2 % (0.0-2.0); EOSINOPHILS % (AUTO) 1.3 % (0.0-6.0); LYMPHOCYTES # (AUTO) 1.2 /CMM (0.8-4.8); LYMPHOCYTES % (AUTO) 9.6 % (20.0-44.0); MEAN CORPUSCULAR HGB CONC 32 g/dl (31.0-36.0); MEAN CORPUSCULAR VOLUME 84 fL (80-96); MONOCYTES # (AUTO) 0.4 /CMM (0.1-1.30); MONOCYTES % (AUTO) 3.3 % (2.0-12.0); NEUTROPHILS % (AUTO) 84.6 % (43.0-81.0); PLATELET COUNT (AUTO) 327 /CMM (150-450); RED BLOOD CELL COUNT(AUTO) 2.13 MIL/uL (4.5-6.0)
[2019-08-16 21:31] LABS: APPEARANCE,URINE Clear (CLEAR); BILIRUBIN,URINE Negative (NEGATIVE); BLOOD, URINE Negative Ery/uL (NEGATIVE); COLOR,URINE Yellow (YELLOW); KETONES,URINE Negative (NEGATIVE); LEUKOCYTE ESTERASE ,URINE Negative (NEGATIVE); NITRITE, URINE Negative (NEGATIVE); PROTEIN,URINE Negative (NEGATIVE); UGLUCOSE Negative (NEGATIVE); UROBILINOGEN,URINE 0.2 EU/dL (0.2)
[2019-08-16 21:43] LABS: HEMATOCRIT 18 % (39-51); HEMOGLOBIN 5.7 g/dL (13.5-17.5)
--- NOTE | 2019-08-16 21:43 | NUR ---
CRITICAL; DR. ROWLEY AWARE ORDER. HGB 5.7 HCT 18
--- NOTE | 2019-08-16 21:47 | NUR ---
Emma marie in [facility] - 08/16/19 at 2147 by ASHER [phone] ms
--- NOTE | 2019-08-16 21:55 | NUR ---
epic paged for panel call, waiting for call back
--- NOTE | 2019-08-16 22:00 | NUR ---
panel call in progress
--- NOTE | 2019-08-16 22:11 | NUR ---
rn sup was called for tele bed
[2019-08-16 22:14] LABS: CARBON DIOXIDE 24 mmol/L (21-32); CHLORIDE 108 mmol/L (98-107); GLUCOSE 134 mg/dL (74-106); POTASSIUM 5.1 mmol/L (3.5-5.1); SODIUM SERUM 137 mmol/L (136-145)
[2019-08-16 22:15] LABS: CALCIUM, SERUM 8.5 mg/dL (8.5-10.1); CREATININE 2.1 mg/dL (0.6-1.3)
[2019-08-16 22:16] LABS: ALANINE AMINOTRANSFERASE 11 U/L (12-78); ALBUMIN 3.3 g/dL (3.4-5.0); ALKALINE PHOSPHATASE 38 U/L (46-116); ASPARTATE AMINOTRANSFERASE 14 U/L (15-37); BILIRUBIN,DIRECT 0.1 mg/dL (0.0-0.2); BILIRUBIN,TOTAL 0.2 mg/dL (0.2-1.0); LIPASE 173 U/L (73-393); TOTAL PROTEIN, SERUM 5.5 g/dL (6.4-8.2)
[2019-08-16 22:18] LABS: UREA NITROGEN, BLOOD 98 mg/dL (7-18)
[2019-08-16 22:23] LABS: EOSINOPHILS % (MANUAL) 1 % (0-4); LYMPHOCYTES % (MANUAL) 8 % (16-48); MONOCYTES % (MANUAL) 1 % (0-11.0); NEUTROPHILS % (MANUAL) 90 (42-76)
--- NOTE | 2019-08-16 22:42 | NUR ---
REPORT GIVEN TO SHAYNA KELLEY FOR 324-2 TELE
--- NOTE | 2019-08-16 23:45 | NUR ---
EXTERNAL AUDITOR ADMITTING NOTES RECEIVED PT FROM ER VIA [facility] IN STABLE CONDITION WITH FAMILY AT BEDSIDE. PT A/O X3 TUNISIAN SPEAKING. NO COMPLAINTS OF PAIN AT THIS TIME. RESPIRATIONS EVEN AND UNLABORED WITH NO S/S OF ACUTE DISTRESS OR SOB NOTED. PT NOTED WITH RAC #18G PATENT AND INTACT AND SL. PT ON TELE MONITORING WITH SINUS RHYTHM 60S. ORIENTED PT TO STAFF AND ROOM. SAFETY MEASURES IN PLACE WITH BED IN LOWEST LOCKED POSITION WITH SIDE RAILS UP X2. CALL LIGHT WITHIN REACH. WILL CONTINUE TO MONITOR.
--- NOTE | 2019-08-16 23:45 | NUR ---
PT TRANSFERRED TO UNIT [facility]IA [facility]
[2019-08-17] VITALS (23 sets, daily range): BP systolic 128–162; BP diastolic 46–86
[2019-08-17] MEDS ORDERED: ICOS1CAP PO (03:16)
[2019-08-17] MEDS ORDERED: AMLO5TAB9 PO (03:16)
[2019-08-17] MEDS ORDERED: METO25TA6 PO (03:16)
[2019-08-17] MEDS ORDERED: TRIA0.252 PO (03:16)
[2019-08-17] MEDS ORDERED: MELO-107 PO (03:16)
[2019-08-17] MEDS ORDERED: FENO134C PO (03:16)
[2019-08-17] MEDS ORDERED: MAGN400T8 PO (03:16)
[2019-08-17] MEDS ORDERED: COLE3.75 PO (03:16)
[2019-08-17] MEDS ORDERED: PARO20TA7 PO (03:16)
[2019-08-17] MEDS ORDERED: MONT10TA22 PO (03:16)
[2019-08-17] MEDS ORDERED: AMYL1CAP58 PO (03:16)
[2019-08-17] MEDS ORDERED: CLOP75TA15 PO (03:16)
--- NOTE | 2019-08-17 04:46 | NUR ---
SHROUD LINE TIER NOTES BLOOD TRANSFUSION, INCORRECT TIME INPUT FOR 0104 AND 0204.
--- NOTE | 2019-08-17 04:51 | NUR ---
SALES PLANNING COORDINATOR NOTES BLOOD TRANSFUSION COMPLETED. WILL CONTINUE TO MONITOR.
--- NOTE | 2019-08-17 04:52 | NUR ---
WET AND DRY SUGAR BIN OPERATOR NOTES 1ST UNIT OF PRBC GIVEN. AWAITING FOR 2ND UNIT TO BE READY. WILL CONTINUE TO MONITOR.
--- NOTE | 2019-08-17 07:35 | NUR ---
MOTOR GRADER ROUGH GRADE NOTES PT IN BED AWAKE RESTING. PT A/O X3 ESTONIAN SPEAKING. NO COMPLAINTS OF PAIN AT THIS TIME. RESPIRATIONS EVEN AND UNLABORED WITH NO S/S OF ACUTE DISTRESS OR SOB NOTED THROUGHOUT SHIFT. PT NOTED WITH RAC #18G PATENT AND INTACT AND SL. PT ON TELE MONITORING WITH SINUS RHYTHM 60S. SAFETY MEASURES IN PLACE WITH BED IN LOWEST LOCKED POSITION WITH SIDE RAILS UP X2. CALL LIGHT WITHIN REACH. WILL ENDORSE TO ONCOMING NURSE FOR FABIANA.
--- NOTE | 2019-08-17 10:15 | NUR ---
PATIENT SEEN BY . FAMILY AGREED FOR COLONOSCOPY AND EGD. START GOLYTELY AT 2000 PM AND LAST 150 ML GIVE AT 0800 AM .
[2019-08-17] MEDS: FUROSEMIDE 20 MG/2 ML VIAL IV SCH ×3 (10:27→20:56)
[2019-08-17] MEDS: hydrALAZINE HCL 50 MG TABLET PO SCH ×2 (10:27→17:00)
[2019-08-17] MEDS: FINASTERIDE (5 MG) 5 MG TABLET PO SCH (10:27)
[2019-08-17 13:25] LABS: BASOPHILS # (AUTO) 0.1 /CMM (0.0-0.2); BASOPHILS % (AUTO) 0.6 % (0.0-2.0); EOSINOPHILS % (AUTO) 1.3 % (0.0-6.0); HEMATOCRIT 21 % (39-51); LYMPHOCYTES # (AUTO) 1.4 /CMM (0.8-4.8); LYMPHOCYTES % (AUTO) 9.9 % (20.0-44.0); MEAN CORPUSCULAR HGB CONC 32 g/dl (31.0-36.0); MEAN CORPUSCULAR VOLUME 87 fL (80-96); MONOCYTES # (AUTO) 0.6 /CMM (0.1-1.30); MONOCYTES % (AUTO) 4.2 % (2.0-12.0); NEUTROPHILS # (AUTO) 11.6 /CMM (1.8-8.9); PLATELET COUNT (AUTO) 251 /CMM (150-450); RED BLOOD CELL COUNT(AUTO) 2.44 MIL/uL (4.5-6.0); WHITE BLOOD COUNT (AUTO) 13.8 K/uL (4.3-11.0)
[2019-08-17 13:46] LABS: ALANINE AMINOTRANSFERASE 15 U/L (12-78); ALBUMIN 2.8 g/dL (3.4-5.0); ALKALINE PHOSPHATASE 28 U/L (46-116); ASPARTATE AMINOTRANSFERASE 12 U/L (15-37); BILIRUBIN,TOTAL 0.3 mg/dL (0.2-1.0); CARBON DIOXIDE 24 mmol/L (21-32); CHLORIDE 109 mmol/L (98-107); CREATININE 2.1 mg/dL (0.6-1.3); GLUCOSE 159 mg/dL (74-106); POTASSIUM 4.9 mmol/L (3.5-5.1); SODIUM SERUM 141 mmol/L (136-145); TOTAL PROTEIN, SERUM 4.9 g/dL (6.4-8.2)
[2019-08-17 13:47] LABS: UREA NITROGEN, BLOOD 104 mg/dL (7-18)
[2019-08-17] MEDS: TRAMADOL HCL 50 MG TABLET PO PRN (13:49)
[2019-08-17 13:58] LABS: HEMOGLOBIN 6.9 g/dL (13.5-17.5)
--- NOTE | 2019-08-17 14:00 | NUR ---
pER DOCTOR TIGIST GIVE ANOTHER UNIT OF RBC
[2019-08-17 14:35] LABS: OCCULT BLOOD STOOL POSITIVE (NEGATIVE)
[2019-08-17 14:40] LABS: URIC ACID 7.8 mg/dL (2.6-7.2)
[2019-08-17 15:24] LABS: EOSINOPHILS % (MANUAL) 1 % (0-4); LYMPHOCYTES % (MANUAL) 14 % (16-48); NEUTROPHILS % (MANUAL) 85 (42-76)
--- NOTE | 2019-08-17 15:28 | NUR ---
made aware pt's H/H 6.03/24 ; OB stool came positive.Patient feels weak ; VS at baseline at this time , O2 saturation 100 % on 2l via NC. Per dr. Monteiro; o r to give another unit of blood
[2019-08-17] MEDS: HYDROCODONE/APAP 10/325MG 1 EA TABLET PO PRN (17:28)
--- NOTE | 2019-08-17 19:45 | NUR ---
RN NOTES RECEIVED PATIENT, AWAKE SITTING ON A CHAIR, BLOOD TRANSFUSION ONGOING AT THIS TIME, #3 PRBC, SAFETY MEASURES IN PLACE, NO SIGNS OF ACUTE CARDIAC OR RESPIRATORY DISTRESS NOTED, ON 2 LPM O2 VIA NASAL CANNULA , ALL NEEDS ANTICIPATED, SAFETY MEASURES IN PLACE, CALL LIGHT WITHIN EASY REACH. WILL MONITOR ACCORDINGLY.
--- NOTE | 2019-08-17 19:45 | NUR ---
patient remains stable on 2l O@ via NC , blood transfusion continued , no s/s adverse reaction , afebrile . Patient NPO after midnight . All needs attended. Plan of care discussed with pt's family. Safety precautions in place , call light within reach . Will endorse to next shift for FABIANA.
[2019-08-17] MEDS ORDERED: PEG 3350/NA SULF,BICARB,CL/KCL 4,000 ML BOTTLE PO ONE (20:00)
[2019-08-17] MEDS: LORAZEPAM 1 MG TABLET PO PRN (20:56)
[2019-08-17] MEDS: TAMSULOSIN 0.4 MG CAP.SR.24H PO SCH (21:48)
[2019-08-17 22:08] LABS: BASOPHILS # (AUTO) 0.1 /CMM (0.0-0.2); BASOPHILS % (AUTO) 0.5 % (0.0-2.0); EOSINOPHILS % (AUTO) 0.6 % (0.0-6.0); HEMATOCRIT 24 % (39-51); HEMOGLOBIN 7.8 g/dL (13.5-17.5); LYMPHOCYTES # (AUTO) 1.4 /CMM (0.8-4.8); LYMPHOCYTES % (AUTO) 8.5 % (20.0-44.0); MEAN CORPUSCULAR HGB CONC 33 g/dl (31.0-36.0); MEAN CORPUSCULAR VOLUME 86 fL (80-96); MONOCYTES # (AUTO) 0.7 /CMM (0.1-1.30); MONOCYTES % (AUTO) 4.1 % (2.0-12.0); NEUTROPHILS % (AUTO) 86.3 % (43.0-81.0); PLATELET COUNT (AUTO) 258 /CMM (150-450); RED BLOOD CELL COUNT(AUTO) 2.76 MIL/uL (4.5-6.0); WHITE BLOOD COUNT (AUTO) 16.2 K/uL (4.3-11.0)
--- NOTE | 2019-08-18 04:50 | NUR ---
RN NOTES PATIENT'S FAMILY MEMBERS ARE REQUESTING TO MOVE TO ANOTHER ROOM, PATIENT CANNOT TOLERATE THE COLD TEMPERATURE,TRYING CHARGE NURSE AWARE AND SPOKE TO FAMILY MEMBERS TO ARRANGE ROOM TRANSFER IN THE MORNING.
[2019-08-18] MEDS: FUROSEMIDE 20 MG/2 ML VIAL IV SCH ×3 (05:16→21:18)
[2019-08-18] MEDS ORDERED: SORBITOL SOLUTION 30 ML PO ONE (06:00)
[2019-08-18] MEDS ORDERED: SORBITOL SOLUTION 30 ML PO SCH (06:00)
--- NOTE | 2019-08-18 06:11 | NUR ---
RN NOTES HAD BM X 10 AT THIS TIME, NOTED WITH CHARCOAL DARK LIQUID STOOL, CHARGE NURSE AWARE, WILL CONTINUE TO MONITOR.
--- NOTE | 2019-08-18 07:11 | NUR ---
RN NOTES ALL NEEDS ATTENDED AND MET, KEPT WARM, AND COMFORTABLE SITTING ON THE CHAIR, SAFETY MEASURES IN PLACE, BEDSIDE COMMODE READY AT ALL TIMES, NOTED WITH BM X 11 THROUGHOUT THE SHIFT, NOTED WITH CHARCOAL BLACK OUTPUT, NO EMESIS AT THIS TIME, EGD / COLONOSCOPY SCHEDULED TODAY AT 12NN, ENDORSED TO AM NURSE SHERWIN RN, FOR CONTINUITY OF CARE.
[2019-08-18 07:30] VITALS: BP 117/65
[2019-08-18 07:52] LABS: BASOPHILS # (AUTO) 0.1 /CMM (0.0-0.2); BASOPHILS % (AUTO) 0.4 % (0.0-2.0); EOSINOPHILS % (AUTO) 0.9 % (0.0-6.0); HEMATOCRIT 21 % (39-51); LYMPHOCYTES # (AUTO) 1.7 /CMM (0.8-4.8); LYMPHOCYTES % (AUTO) 11.5 % (20.0-44.0); MEAN CORPUSCULAR HGB CONC 33 g/dl (31.0-36.0); MEAN CORPUSCULAR VOLUME 86 fL (80-96); MONOCYTES # (AUTO) 0.8 /CMM (0.1-1.30); MONOCYTES % (AUTO) 5.6 % (2.0-12.0); NEUTROPHILS % (AUTO) 81.6 % (43.0-81.0); PLATELET COUNT (AUTO) 245 /CMM (150-450); RED BLOOD CELL COUNT(AUTO) 2.46 MIL/uL (4.5-6.0); WHITE BLOOD COUNT (AUTO) 14.7 K/uL (4.3-11.0)
[2019-08-18] MEDS ORDERED: PANTOPRAZOLE 40 MG VIAL IV SCH ×2 (08:00)
[2019-08-18 08:06] LABS: ALANINE AMINOTRANSFERASE 14 U/L (12-78); ALBUMIN 2.9 g/dL (3.4-5.0); ALKALINE PHOSPHATASE 24 U/L (46-116); ASPARTATE AMINOTRANSFERASE 12 U/L (15-37); BILIRUBIN,TOTAL 0.3 mg/dL (0.2-1.0); CARBON DIOXIDE 23 mmol/L (21-32); CHLORIDE 107 mmol/L (98-107); CREATININE 2.3 mg/dL (0.6-1.3); GLUCOSE 107 mg/dL (74-106); POTASSIUM 4.9 mmol/L (3.5-5.1); SODIUM SERUM 140 mmol/L (136-145)
[2019-08-18 08:08] LABS: UREA NITROGEN, BLOOD 107 mg/dL (7-18)
[2019-08-18 08:09] LABS: URIC ACID 8.5 mg/dL (2.6-7.2)
[2019-08-18] MEDS: hydrALAZINE HCL 50 MG TABLET PO SCH ×2 (09:00→16:46)
[2019-08-18] MEDS: HYDROCODONE/APAP 10/325MG 1 EA TABLET PO PRN ×2 (09:04→17:48)
[2019-08-18] MEDS: FINASTERIDE (5 MG) 5 MG TABLET PO SCH (09:07)
[2019-08-18] MEDS ORDERED: FENTANYL PF 100MCG/2ML AMPUL ONE (11:17)
--- NOTE | 2019-08-18 13:20 | NUR ---
Patient came back from OR in stable condition, A/O x3, VS are stable and at baseline. New orders noted.
--- NOTE | 2019-08-18 15:10 | NUR ---
Patient seen by dr. Rodriguez. Family and patient informed of colonoscopy and EGD results.Recommendations given; family verbalized understanding. Patient can start on regular diet. No new orders at this time.
[2019-08-18 16:00] VITALS: BP 142/67
--- NOTE | 2019-08-18 18:38 | NUR ---
Patient remains stable on 2l O@ via NC . VS are stable and within base line, afebrile. All needs attended. Safety precautions in place , call light within reach . Will endorse to next shift for FABIANA.
--- NOTE | 2019-08-18 19:56 | NUR ---
RN NOTES RECEIVED PATIENT AWAKE, SITTING ON A CHAIR, CALM, RESPONSIVE TO BOTH VERBAL AND TACTILE STIMULI, BREATHING EVEN AND UNLABORED ON 02 AT 2LPM VIA NASAL CANNULA, IV ACCESS INTACT AND PATENT, REPOSITIONED, COVERED WITH MULTIPLE LAYER OF BLANKET, PATIENT PREFERS TO SIT AT ALL TIMES, DENIES PAIN AT THIS TIME, ALL NEEDS ANTICIPATED, WILL CONTINUE TO MONITOR ACCORDINGLY.
[2019-08-18 20:34] VITALS: BP 137/54
[2019-08-18] MEDS: PANTOPRAZOLE 40 MG TABLET.DR PO SCH (21:18)
[2019-08-18] MEDS: TAMSULOSIN 0.4 MG CAP.SR.24H PO SCH (22:18)
[2019-08-19] MEDS: LORAZEPAM 1 MG TABLET PO PRN ×3 (03:52→22:56)
[2019-08-19] MEDS: FUROSEMIDE 20 MG/2 ML VIAL IV SCH ×3 (05:38→21:45)
--- NOTE | 2019-08-19 07:28 | NUR ---
RN NOTES ALL NEEDS ATTENDED AND MET, SAFETY MEASURES IN PLACE, SON IN-LAW AT BEDSIDE, PATIENT DENIES PAIN AT THIS TIME, IV ACCESS INTACT AND PATENT, ENDORSED TO AM NURSE FOR CONTINUITY OF CARE.
--- NOTE | 2019-08-19 07:40 | NUR ---
MS/RN NOTE THE PATIENT IS RECEIVED SLEEPING IN A CHAIR AND THE FAMILY MEMBER SITING NEXT TO HIM. PATIENT IN ROOM AIR AND NO SOB NOTED. RESPIRATION REGULAR AND UNLABORED. NO MANIFESTATION OF DISTRESS NOTED. RAC G 18 PATENT AND SALINE LOCKED. CALL LIGHT WITHIN REACH. WILL CONTINUE TO MONITOR.
[2019-08-19 08:00] VITALS: BP 132/50
[2019-08-19 08:33] LABS: BASOPHILS % (AUTO) 0.3 % (0.0-2.0); EOSINOPHILS % (AUTO) 0.8 % (0.0-6.0); HEMATOCRIT 23 % (39-51); HEMOGLOBIN 7.4 g/dL (13.5-17.5); LYMPHOCYTES # (AUTO) 1.1 /CMM (0.8-4.8); LYMPHOCYTES % (AUTO) 8.8 % (20.0-44.0); MEAN CORPUSCULAR HGB CONC 33 g/dl (31.0-36.0); MEAN CORPUSCULAR VOLUME 87 fL (80-96); MONOCYTES # (AUTO) 0.9 /CMM (0.1-1.30); MONOCYTES % (AUTO) 7.4 % (2.0-12.0); NEUTROPHILS # (AUTO) 10.3 /CMM (1.8-8.9); NEUTROPHILS % (AUTO) 82.7 % (43.0-81.0); PLATELET COUNT (AUTO) 288 /CMM (150-450); RED BLOOD CELL COUNT(AUTO) 2.59 MIL/uL (4.5-6.0); WHITE BLOOD COUNT (AUTO) 12.5 K/uL (4.3-11.0)
[2019-08-19] MEDS: PANTOPRAZOLE 40 MG TABLET.DR PO SCH ×2 (09:45→21:45)
[2019-08-19] MEDS: FINASTERIDE (5 MG) 5 MG TABLET PO SCH (09:45)
[2019-08-19] MEDS: hydrALAZINE HCL 50 MG TABLET PO SCH ×2 (09:46→18:25)
[2019-08-19 10:27] LABS: ALANINE AMINOTRANSFERASE 16 U/L (12-78); ALBUMIN 3.3 g/dL (3.4-5.0); ALKALINE PHOSPHATASE 29 U/L (46-116); ASPARTATE AMINOTRANSFERASE 34 U/L (15-37); BILIRUBIN,TOTAL 0.4 mg/dL (0.2-1.0); CALCIUM, SERUM 8.3 mg/dL (8.5-10.1); CARBON DIOXIDE 19 mmol/L (21-32); CHLORIDE 106 mmol/L (98-107); CREATININE 2.2 mg/dL (0.6-1.3); GLUCOSE 100 mg/dL (74-106); MAGNESIUM 2.2 mg/dL (1.8-2.4); POTASSIUM 5.2 mmol/L (3.5-5.1); SODIUM SERUM 138 mmol/L (136-145); TOTAL PROTEIN, SERUM 5.7 g/dL (6.4-8.2)
[2019-08-19 11:10] LABS: UREA NITROGEN, BLOOD 96 mg/dL (7-18)
[2019-08-19 16:00] VITALS: BP 132/56
[2019-08-19] MEDS ORDERED: LEVOFLOXACIN 500 MG /D5W 100ML 500 MG in PREMIX 1 EA IV ONE (18:00)
--- NOTE | 2019-08-19 18:46 | NUR ---
MS/RN NOTE THE PATIENT IS ALERT AND ORIENTED X4. DENIES PAIN. IN ROOM AIR AND SATURATION IS AT 94%. DENIES SOB. RESPIRATION REGULAR AND UNLABORED. RAC G 18 PATENT AND ANTIBIOTIC INFUSING PER ORDER. NO S/S INFILTRATION NOTED. BED LOW AND LOCKED. SIDE RAILS UP X3. CALL LIGHT WITHIN REACH. WILL ENDORSE TO ACTIVITY DIRECTOR.
--- NOTE | 2019-08-19 19:40 | NUR ---
RN OPENING NOTES RECEIVED REPORT FROM DAYSHIFT RN. FOUND Pt AWAKE, SITTING UP IN CHAIR. NO S/S OF ACUTE DISTRESS OR SOB NOTED. Pt IS A/OX4, CROATIAN SPEAKING BUT UNDERSTANDS TANZANIAN, IS VERBAL AND ABLE TO MAKE NEEDS KNOWN. IV ACCESS ON RAC #18G, SL. SAFETY MEASURES IN PLACE. FAMILY VISITING AT BEDSIDE. SAFETY MEASURES IN PLACE. CALL LIGHT WITHIN REACH. WILL CONTINUE TO MONITOR Pt's CONDITION AND SAFETY THROUGHOUT THE SHIFT.
[2019-08-19 20:41] VITALS: BP 129/57
[2019-08-19] MEDS: HYDROCODONE/APAP 10/325MG 1 EA TABLET PO PRN (21:39)
[2019-08-19] MEDS: TAMSULOSIN 0.4 MG CAP.SR.24H PO SCH (21:45)
--- NOTE | 2019-08-19 22:05 | NUR ---
RN NOTES PREVIOUS PA RN ANDREA DID NOT LOG OUT OF [facility] DURING CHANGE OF SHIFT. MY LOG IN WINDOW WAS MINIMIZED WITHOUT ME NOTICING WHEN PASSING MEDS AND DID NOT REALIZE THAT I WAS ON THE PA MEDITECH. ACCIDENTALLY PASSED MEDS UNDER [facility] NURSE's USERNAME. CORRECT MEDS WAS GIVEN TO CORRECT PATIENT. NORCO 10/325, LASIX 20MG, PROTONIX 40MG, FLOMAX 0.4MG WAS ALL CORRECTLY ADMINISTERED TO Pt CHRIS RAY.
[2019-08-20] VITALS (13 sets, daily range): BP systolic 127–179; BP diastolic 45–67
[2019-08-20] MEDS: GABAPENTIN 300 MG CAPSULE PO PRN (03:24)
[2019-08-20] MEDS: FUROSEMIDE 20 MG/2 ML VIAL IV SCH ×3 (06:20→20:20)
--- NOTE | 2019-08-20 07:07 | NUR ---
RN CLOSING NOTES NO SIGNIFICANT CHANGES IN Pt's CONDITION. Pt IS RESTING COMFORTABLY IN CHAIR. NO S/S OF ACUTE DISTRESS OR SOB NOTED. ALL NEEDS MET AND ATTENDED TO. SAFETY MEASURES IN PLACE. WILL ENDORSE TO DAYSHIFT RN FOR Pt's FABIANA.
--- NOTE | 2019-08-20 07:54 | NUR ---
MS RN OPENING NOTES RECEIVED PATIENT IN BED, AWAKE, A/O X 4. FAMILY AT THE BEDSIDE. PATIENT ON ROOM AIR BREATHING EVENLY WITH NO SOB PRESENT AT THE MOMENT. PATIENT DENIES PAIN AT THIS TIME. RAC GAUGE 18 PRESENT AND FLUSHING WELL. SAFETY PRECAUTIONS IN PLACE: BED IN LOW POSITION AND LOCKED, RAILS UP X2, CALL LIGHT WITHIN REACH. WILL CONTINUE TO MONITOR PATIENT.
[2019-08-20 08:18] LABS: BASOPHILS % (AUTO) 0.4 % (0.0-2.0); EOSINOPHILS % (AUTO) 3.2 % (0.0-6.0); LYMPHOCYTES # (AUTO) 1.1 /CMM (0.8-4.8); LYMPHOCYTES % (AUTO) 12.4 % (20.0-44.0); MEAN CORPUSCULAR HGB CONC 34 g/dl (31.0-36.0); MEAN CORPUSCULAR VOLUME 88 fL (80-96); MONOCYTES # (AUTO) 0.6 /CMM (0.1-1.30); MONOCYTES % (AUTO) 6.2 % (2.0-12.0); NEUTROPHILS # (AUTO) 7.1 /CMM (1.8-8.9); NEUTROPHILS % (AUTO) 77.8 % (43.0-81.0); PLATELET COUNT (AUTO) 300 /CMM (150-450); RED BLOOD CELL COUNT(AUTO) 2.27 MIL/uL (4.5-6.0); WHITE BLOOD COUNT (AUTO) 9.1 K/uL (4.3-11.0)
[2019-08-20] MEDS: hydrALAZINE HCL 50 MG TABLET PO SCH ×2 (08:27→18:34)
[2019-08-20] MEDS: PANTOPRAZOLE 40 MG TABLET.DR PO SCH ×2 (08:28→20:21)
[2019-08-20] MEDS: FINASTERIDE (5 MG) 5 MG TABLET PO SCH (08:28)
[2019-08-20 08:34] LABS: HEMOGLOBIN 6.7 g/dL (13.5-17.5)
[2019-08-20 08:35] LABS: HEMATOCRIT 20 % (39-51)
--- NOTE | 2019-08-20 08:42 | NUR ---
MS RN NOTES RECEIVED A CALL FROM LAB ([facility]) REGARDING A CRITICAL LAB VALUE OF HEMOGLOBIN AT 6.7 AND HEMATOCRIT AT 20. MD AT PATIENT BEDSIDE AND NOTIFIED. 2 UNITS OF BLOOD ORDERED.
[2019-08-20 08:45] LABS: ALANINE AMINOTRANSFERASE 17 U/L (12-78); ALBUMIN 3.1 g/dL (3.4-5.0); ALKALINE PHOSPHATASE 35 U/L (46-116); ASPARTATE AMINOTRANSFERASE 28 U/L (15-37); BILIRUBIN,TOTAL 0.5 mg/dL (0.2-1.0); CARBON DIOXIDE 24 mmol/L (21-32); CHLORIDE 103 mmol/L (98-107); CREATININE 2.3 mg/dL (0.6-1.3); GLUCOSE 138 mg/dL (74-106); MAGNESIUM 2.2 mg/dL (1.8-2.4); PHOSPHORUS 4.6 mg/dL (2.5-4.9); POTASSIUM 4.1 mmol/L (3.5-5.1); SODIUM SERUM 138 mmol/L (136-145); TOTAL PROTEIN, SERUM 5.4 g/dL (6.4-8.2); UREA NITROGEN, BLOOD 82 mg/dL (7-18)
[2019-08-20 09:04] LABS: BAND % (MANUAL) 2 % (0.0-5.0); EOSINOPHILS % (MANUAL) 2 % (0-4); LYMPHOCYTES % (MANUAL) 14 % (16-48); MONOCYTES % (MANUAL) 6 % (0-11.0); NEUTROPHILS % (MANUAL) 76 (42-76)
--- NOTE | 2019-08-20 13:30 | NUR ---
MS RN PRE-TRANSFUSION NOTES PATIENT IN STABLE CONDITION. BLOOD CHECKED AND SIGNED BY 2 RNs. VITAL SIGNS STABLE: B/P 143/46, T: 98.4 PULSE: 79 RESP: 18 O2: 100 WILL CONTINUE TO MONITOR PATIENT
[2019-08-20] MEDS: SOD FERRIC GLUC 125 MG in IV NS 0.9% 100 ML IV SCH (14:00)
[2019-08-20] MEDS: HYDROCODONE/APAP 10/325MG 1 EA TABLET PO PRN (17:23)
--- NOTE | 2019-08-20 17:58 | NUR ---
MS RN NOTES TRANSFUSION OF FIRST BAG OF BLOOD ENDED. PATIENT TOLERATED WELL. PATIENT IN PAIN DUE TO SCROTAL PAIN. ASKED FOR A PAIN MEDICATION. WILL ADMINISTER PAIN MEDICATION AND WILL START SECOND UNIT OF BLOOD SOON PICKED UP FROM THE LAB. WILL CONTINUE TO MONITOR PATIENT.
--- NOTE | 2019-08-20 19:09 | NUR ---
MS RN CLOSING NOTES PATIENT CURRENTLY SITTING IN HIS CHAIR, AWAKE, A/O X4. PATIENT ON ROOM AIR, BREATHING EVENLY IN NO ACUTE DISTRESS AT THIS TIME. NO PAIN AT THIS TIME WELL. RAC GAUGE # 20 PATENT AND INFUSING MEDICATION AT THIS TIME. FIRST UNIT OF RBC TOLERATED WELL. ENDORSED TO SOLE LEVELER MACHINE NURSE THE NEED TO TRANSFUSE SECOND UNIT. SAFETY PRECAUTIONS IN PLACE; BED IN LOW POSITION AND LOCKED, CALL LIGHT WITHIN REACH. WILL ENDORSE TO SOLE LEVELER MACHINE NURSE.
[2019-08-20] MEDS: LEVOFLOXACIN 250 MG /D5W 50 ML 250 MG in PREMIX 1 EA IV SCH (20:20)
[2019-08-20] MEDS: TAMSULOSIN 0.4 MG CAP.SR.24H PO SCH (20:21)
[2019-08-20] MEDS ORDERED: IBUPROFEN 600 MG TABLET PO SCH (21:00)
[2019-08-21] VITALS (7 sets, daily range): BP systolic 131–165; BP diastolic 53–73
[2019-08-21] MEDS: TRAMADOL HCL 50 MG TABLET PO PRN ×2 (00:07→15:20)
[2019-08-21] MEDS: LORAZEPAM 1 MG TABLET PO PRN ×2 (00:32→11:17)
--- NOTE | 2019-08-21 05:00 | NUR ---
MS RN CLOSING NOTES: PATIENT IS SITTING IN THE CHAIR FOR THE WHOLE NIGHT. PATIENT'S SON SAID THAT PATIENT IS NOT COMFORTABLE LYING IN BED BECAUSE OF HIS SCROTUM. DR PHAM CAME LAST NIGHT AND SEEN THE PATIENT. PATIENT NEEDS A SCROTAL SUPPORT, WILL ENDORSE TO THE NEXT SHIFT RN. 1 UNIT OF PRBC GIVEN LAST NIGHT, TOLERATED, NO ADVERSE REACTIONS NOTED. V/S TAKEN AND RECORDED. PATIENT'S SON STAYED LAST NIGHT.
[2019-08-21] MEDS: FUROSEMIDE 20 MG/2 ML VIAL IV SCH ×3 (05:10→21:40)
--- NOTE | 2019-08-21 07:25 | NUR ---
MS RN OPENING NOTES PATIENT RECEIVED SITTING ON CHAIR BY BEDSIDE IN IN NO ACUTE SIGN SO DISTRESS. FAMILY PRESENT IN ROOM. A/O X4, ABLE TO MAKE NEEDS KNOWN, DENIES PAIN OR ANY DISCOMFORTS AT THIS TIME. ON 02 VIA N/C AT 2LPM, TOLERATING WELL, RESPIRATIONS EVEN AND UNLABORED. IV SL ON RAC G#20 INTACT AND PATENT. CALL LIGHT WITHIN REACH. WILL CONTINUE TO MONITOR.
[2019-08-21 07:54] LABS: BASOPHILS % (AUTO) 0.5 % (0.0-2.0); EOSINOPHILS % (AUTO) 6.4 % (0.0-6.0); HEMATOCRIT 28 % (39-51); HEMOGLOBIN 9.6 g/dL (13.5-17.5); LYMPHOCYTES # (AUTO) 1.2 /CMM (0.8-4.8); LYMPHOCYTES % (AUTO) 12.4 % (20.0-44.0); MEAN CORPUSCULAR HGB CONC 34 g/dl (31.0-36.0); MEAN CORPUSCULAR VOLUME 86 fL (80-96); MONOCYTES # (AUTO) 0.8 /CMM (0.1-1.30); NEUTROPHILS # (AUTO) 6.7 /CMM (1.8-8.9); NEUTROPHILS % (AUTO) 71.7 % (43.0-81.0); PLATELET COUNT (AUTO) 340 /CMM (150-450); RED BLOOD CELL COUNT(AUTO) 3.27 MIL/uL (4.5-6.0); WHITE BLOOD COUNT (AUTO) 9.4 K/uL (4.3-11.0)
[2019-08-21] MEDS: hydrALAZINE HCL 50 MG TABLET PO SCH ×2 (08:21→17:02)
[2019-08-21] MEDS: PANTOPRAZOLE 40 MG TABLET.DR PO SCH ×2 (08:21→21:40)
[2019-08-21] MEDS: FINASTERIDE (5 MG) 5 MG TABLET PO SCH (08:21)
[2019-08-21] MEDS: CARVEDILOL 6.25 MG TABLET PO SCH ×2 (09:00→21:00)
[2019-08-21] MEDS ORDERED: CLONIDINE HCL 0.1MG/24H PTWK 1 EA PATCH TD SCH (09:00)
[2019-08-21] MEDS ORDERED: SPIRONOLACTONE 25 MG TABLET PO SCH (09:00)
[2019-08-21] MEDS: GABAPENTIN 300 MG CAPSULE PO PRN (09:59)
[2019-08-21 11:02] LABS: ALANINE AMINOTRANSFERASE 21 U/L (12-78); ALBUMIN 3.6 g/dL (3.4-5.0); ALKALINE PHOSPHATASE 43 U/L (46-116); ASPARTATE AMINOTRANSFERASE 54 U/L (15-37); BILIRUBIN,TOTAL 0.6 mg/dL (0.2-1.0); CALCIUM, SERUM 8.5 mg/dL (8.5-10.1); CARBON DIOXIDE 23 mmol/L (21-32); CHLORIDE 102 mmol/L (98-107); CREATININE 2.2 mg/dL (0.6-1.3); GLUCOSE 99 mg/dL (74-106); POTASSIUM 4.7 mmol/L (3.5-5.1); SODIUM SERUM 136 mmol/L (136-145); TOTAL PROTEIN, SERUM 6.3 g/dL (6.4-8.2); UREA NITROGEN, BLOOD 73 mg/dL (7-18)
--- NOTE | 2019-08-21 11:44 | NUR ---
RN NOTES PT SEEN BY DR ESCOTO WITH ORDER TO GIVE MIRALAX 17GH PO TWICE A DAY. WILL CARRY OUT ORDER
[2019-08-21] MEDS: POLYETHYLENE GLYCOL 3350 17 GM POWD.PACK PO SCH ×2 (11:59→17:02)
[2019-08-21] MEDS: SOD FERRIC GLUC 125 MG in IV NS 0.9% 100 ML IV SCH (14:46)
--- NOTE | 2019-08-21 14:56 | NUR ---
RN NOTES FAMILY AT BEDSIDE AND WANTED THE CATAPRES PATCH REMOVED THAT WAS PLACED THIS MORNING PER MD ORDER. FAMILY STATED THAT IT'S CAUSED THE PT BECOME RESTLESS AND HAVE NUMBNESS ON HIS LEFT HAND. CATAPRES REMOVED. PT RELAX AND CALM NOW. WILL CONTINUE TO MONITOR
[2019-08-21] MEDS: LEVOFLOXACIN 250 MG /D5W 50 ML 250 MG in PREMIX 1 EA IV SCH (17:02)
--- NOTE | 2019-08-21 18:31 | NUR ---
MS RN CLOSING NOTES PATIENT AWAKE AND SIITING ON CHAIR BY BEDSIDE WITH FAMILY PRESENT IN ROOM. A/O X4. MONTSERRATIAN SPEAKING. ON SUPPLEMENTAL 02 VIA N/C AT 2LPM, TOLERATING WELL WITH NO SOB NOTED. IV SL ON RAC G#20 INTACT, PATENT AND FLUSHES WELL. BED IN LOWEST LOCKED POSITION WITH SR UP X2. CALL LIGHT WITHIN REACH. ALL NEEDS AND CARE ATTENDED WELL. WILL ENDORSE TO FLAT IRONER NURSE FOR FABIANA
--- NOTE | 2019-08-21 19:56 | NUR ---
MS RN NOTES PATIENT IN CHAIR, WITH FAMILY AT BEDSIDE. ALERT AND ORIENTED X 4. BRUNEIAN SPEAKING ONLY. DENIES ACUTE PAIN, NO ACUTE RESPIRATORY DISTRESS. IV ON RAC #20G CLEAN DRY AND INTACT. SHOWS NO INFILTRATION, NO REDNESS. SAFETY PRECAUTIONS IN PLACE. BED IN LOWEST POSITION, LOCKED, AND CALL LIGHT KEPT WITHIN REACH. WILL CONTINUE TO MONITOR.
[2019-08-21] MEDS: TAMSULOSIN 0.4 MG CAP.SR.24H PO SCH (21:40)
[2019-08-22] MEDS: FUROSEMIDE 20 MG/2 ML VIAL IV SCH ×3 (05:14→20:41)
[2019-08-22 06:06] LABS: BASOPHILS # (AUTO) 0.1 /CMM (0.0-0.2); BASOPHILS % (AUTO) 0.7 % (0.0-2.0); EOSINOPHILS % (AUTO) 6.8 % (0.0-6.0); HEMATOCRIT 28 % (39-51); HEMOGLOBIN 9.3 g/dL (13.5-17.5); LYMPHOCYTES # (AUTO) 1.4 /CMM (0.8-4.8); LYMPHOCYTES % (AUTO) 13.5 % (20.0-44.0); MEAN CORPUSCULAR HGB CONC 34 g/dl (31.0-36.0); MEAN CORPUSCULAR VOLUME 87 fL (80-96); MONOCYTES # (AUTO) 0.8 /CMM (0.1-1.30); MONOCYTES % (AUTO) 8.4 % (2.0-12.0); NEUTROPHILS # (AUTO) 7.1 /CMM (1.8-8.9); NEUTROPHILS % (AUTO) 70.6 % (43.0-81.0); PLATELET COUNT (AUTO) 337 /CMM (150-450); RED BLOOD CELL COUNT(AUTO) 3.18 MIL/uL (4.5-6.0); WHITE BLOOD COUNT (AUTO) 10.1 K/uL (4.3-11.0)
[2019-08-22 06:39] LABS: CALCIUM, SERUM 8.5 mg/dL (8.5-10.1); CARBON DIOXIDE 25 mmol/L (21-32); CHLORIDE 103 mmol/L (98-107); CREATININE 2.1 mg/dL (0.6-1.3); GLUCOSE 90 mg/dL (74-106); POTASSIUM 4.2 mmol/L (3.5-5.1); SODIUM SERUM 137 mmol/L (136-145); UREA NITROGEN, BLOOD 58 mg/dL (7-18)
--- NOTE | 2019-08-22 06:51 | NUR ---
MS RN NOTES PATIENT ASLEEP THROUGHOUT NIGHT, SITTING ON CHAIR. ALERT AND ORIENTED X 4. SLOVAK SPEAKING ONLY. DENIES ACUTE PAIN, NO ACUTE RESPIRATORY DISTRESS. IV ON RAC #20G CLEAN DRY AND INTACT. SHOWS NO INFILTRATION, NO REDNESS. ALL DUE MEDICATIONS GIVEN. SAFETY PRECAUTIONS IN PLACE. BED IN LOWEST POSITION, LOCKED, AND CALL LIGHT KEPT WITHIN REACH. WILL ENDORSE TO ONCOMING NURSE.
--- NOTE | 2019-08-22 07:30 | NUR ---
RN MS NOTES PT AWAKE, ALERT AND ORIENTED, SITTING IN HIS CHAIR, RESPIRATIONS NORMAL, NO COMPLAINT OF PAIN OR ANY DISCOMFORT, FAMILY AT BEDSIDE, CALL LIGHT WITHIN REACH, NEEDS ATTENDED.
[2019-08-22 08:00] VITALS: BP 139/60
--- NOTE | 2019-08-22 08:30 | NUR ---
RN MS NOTES PT AWAKE, SITTING IN HIS CHAIR, NOT IN PAIN OR DISTRESS, SEEN AND EXAMINED BY DR. KAUR, PLAN OF CARE DISCUSSED WITH PT, VERBALIZED UNDERSTANDING.
[2019-08-22] MEDS ORDERED: LEVOFLOXACIN (500MG) 500 MG TABLET PO SCH (09:00)
[2019-08-22] MEDS: CARVEDILOL 6.25 MG TABLET PO SCH ×2 (09:00→21:00)
[2019-08-22] MEDS: PANTOPRAZOLE 40 MG TABLET.DR PO SCH ×2 (09:25→20:41)
[2019-08-22] MEDS: POLYETHYLENE GLYCOL 3350 17 GM POWD.PACK PO SCH ×2 (09:25→18:18)
[2019-08-22] MEDS: SPIRONOLACTONE 25 MG TABLET PO SCH ×2 (09:26→17:00)
[2019-08-22] MEDS: hydrALAZINE HCL 50 MG TABLET PO SCH ×2 (09:26→17:00)
[2019-08-22] MEDS: ENALAPRIL MALEATE (5 MG) 5 MG TABLET PO SCH (09:26)
[2019-08-22] MEDS: FINASTERIDE (5 MG) 5 MG TABLET PO SCH (09:26)
[2019-08-22] MEDS: LORAZEPAM 1 MG TABLET PO PRN ×2 (10:15→21:05)
[2019-08-22] MEDS: SOD FERRIC GLUC 125 MG in IV NS 0.9% 100 ML IV SCH (14:37)
[2019-08-22 16:00] VITALS: BP 145/60
[2019-08-22] MEDS ORDERED: LEVOFLOXACIN (250MG) 250 MG TABLET PO SCH (18:00)
--- NOTE | 2019-08-22 19:00 | NUR ---
RN MS NOTES PT AWAKE, ALERT AND ORIENTED, SITTING IN HIS CHAIR, NO COMPLAINT OF PAIN, NOT IN DISTRESS, O2 SAT AT 99% ON ROOM AIR, PM MEDS GIVEN, ABLE TO WALK TO THE BATHROOM WITH A WALKER, ALL NEEDS ATTENDED.
--- NOTE | 2019-08-22 19:37 | NUR ---
MS RN NOTES PATIENT IN CHAIR, WITH FAMILY AT BEDSIDE. ALERT AND ORIENTED X 4. BELIZEAN SPEAKING ONLY. BREATHING EVEN AND UNLABORED ON 2L NC. DENIES ACUTE PAIN, NO ACUTE RESPIRATORY DISTRESS. IV ON RAC #20G CLEAN DRY AND INTACT. SHOWS NO INFILTRATION, NO REDNESS. SAFETY PRECAUTIONS IN PLACE. BED IN LOWEST POSITION, LOCKED, AND CALL LIGHT KEPT WITHIN REACH. WILL CONTINUE TO MONITOR.
[2019-08-22] MEDS: TAMSULOSIN 0.4 MG CAP.SR.24H PO SCH (21:05)
--- NOTE | 2019-08-22 21:05 | NUR ---
MS RN NOTES PATIENT COMPLAINING OF ANXIETY. GIVEN PRN ATIVAN AT 2105. WILL CONTINUE TO MONITOR.
[2019-08-22 21:23] VITALS: BP 167/66
[2019-08-23] MEDS: FUROSEMIDE 20 MG/2 ML VIAL IV SCH (05:23)
--- NOTE | 2019-08-23 06:51 | NUR ---
MS RN NOTES PATIENT IN BED, ASLEEP, ALERT AND ORIENTED X 4. TURKISH SPEAKING ONLY. BREATHING EVEN AND UNLABORED ON 2L NC. DENIES ACUTE PAIN, NO ACUTE RESPIRATORY DISTRESS. IV ON RAC #20G CLEAN DRY AND INTACT. SHOWS NO INFILTRATION, NO REDNESS. ALL DUE MEDICATIONS GIVEN. SAFETY PRECAUTIONS IN PLACE. BED IN LOWEST POSITION, LOCKED, AND CALL LIGHT KEPT WITHIN REACH. WILL ENDORSE TO ONCOMING NURSE.
[2019-08-23 07:10] LABS: BASOPHILS % (AUTO) 0.4 % (0.0-2.0); EOSINOPHILS % (AUTO) 6.3 % (0.0-6.0); HEMATOCRIT 27 % (39-51); HEMOGLOBIN 9.2 g/dL (13.5-17.5); LYMPHOCYTES % (AUTO) 11.5 % (20.0-44.0); MEAN CORPUSCULAR HGB CONC 34 g/dl (31.0-36.0); MEAN CORPUSCULAR VOLUME 86 fL (80-96); MONOCYTES # (AUTO) 0.7 /CMM (0.1-1.30); MONOCYTES % (AUTO) 7.9 % (2.0-12.0); NEUTROPHILS # (AUTO) 6.6 /CMM (1.8-8.9); NEUTROPHILS % (AUTO) 73.9 % (43.0-81.0); PLATELET COUNT (AUTO) 338 /CMM (150-450); RED BLOOD CELL COUNT(AUTO) 3.18 MIL/uL (4.5-6.0); WHITE BLOOD COUNT (AUTO) 8.9 K/uL (4.3-11.0)
--- NOTE | 2019-08-23 07:30 | NUR ---
RN MS NOTES PT AWAKE, ALERT AND ORIENTED, SITTING IN HIS CHAIR, NO COMPLAINT OF PAIN, NOT IN DISTRESS, FAMILY AT BEDSIDE, PLAN OF CARE DISCUSSED WITH PT, VERBALIZED UNDERSTANDING, CALL LIGHT WITHIN REACH.
[2019-08-23 08:00] VITALS: BP 142/59
[2019-08-23 08:30] LABS: ALANINE AMINOTRANSFERASE 19 U/L (12-78); ALBUMIN 3.1 g/dL (3.4-5.0); ALKALINE PHOSPHATASE 43 U/L (46-116); ASPARTATE AMINOTRANSFERASE 25 U/L (15-37); B-TYPE NATRIURETIC PEPTIDE 1141 PG/ML (0-125); BILIRUBIN,TOTAL 0.5 mg/dL (0.2-1.0); CALCIUM, SERUM 8.4 mg/dL (8.5-10.1); CHLORIDE 103 mmol/L (98-107); CREATININE 2.3 mg/dL (0.6-1.3); GLUCOSE 102 mg/dL (74-106); MAGNESIUM 2.1 mg/dL (1.8-2.4); PHOSPHORUS 3.3 mg/dL (2.5-4.9); POTASSIUM 3.9 mmol/L (3.5-5.1); SODIUM SERUM 138 mmol/L (136-145); TOTAL PROTEIN, SERUM 5.5 g/dL (6.4-8.2)
[2019-08-23 08:38] LABS: CARBON DIOXIDE 24 mmol/L (21-32); UREA NITROGEN, BLOOD 52 mg/dL (7-18)
[2019-08-23] MEDS: POLYETHYLENE GLYCOL 3350 17 GM POWD.PACK PO SCH (08:45)
[2019-08-23] MEDS: PANTOPRAZOLE 40 MG TABLET.DR PO SCH (08:45)
[2019-08-23] MEDS: FINASTERIDE (5 MG) 5 MG TABLET PO SCH (08:46)
[2019-08-23] MEDS: SPIRONOLACTONE 25 MG TABLET PO SCH (08:46)
[2019-08-23] MEDS: hydrALAZINE HCL 50 MG TABLET PO SCH (08:51)
[2019-08-23 08:52] VITALS: BP 142/59
[2019-08-23] MEDS: ENALAPRIL MALEATE (5 MG) 5 MG TABLET PO SCH (08:52)
[2019-08-23] MEDS ORDERED: CARVEDILOL 3.125 MG TABLET PO SCH (09:00)
[2019-08-23] MEDS: LORAZEPAM 1 MG TABLET PO PRN (09:17)
[2019-08-23] MEDS: SOD FERRIC GLUC 125 MG in IV NS 0.9% 100 ML IV SCH (11:40)
[2019-08-23 12:17] LABS: APPEARANCE,URINE CLEAR (CLEAR); BILIRUBIN,URINE NEGATIVE (NEGATIVE); BLOOD, URINE NEGATIVE Ery/uL (NEGATIVE); COLOR,URINE YELLOW (YELLOW); KETONES,URINE NEGATIVE (NEGATIVE); LEUKOCYTE ESTERASE ,URINE NEGATIVE (NEGATIVE); NITRITE, URINE NEGATIVE (NEGATIVE); PROTEIN,URINE NEGATIVE (NEGATIVE); UGLUCOSE NEGATIVE (NEGATIVE); UROBILINOGEN,URINE 0.2 EU/dL (0.2)
[2019-08-23 12:19] LABS: EOSINOPHIL,URINE None Seen; URINE TOTAL PROTEIN 4.1 mg/dL (0-11.9)
[2019-08-23 12:22] LABS: CREATININE, URINE 38.8 MG/DL (30.0-125.0)
--- NOTE | 2019-08-23 13:15 | NUR ---
RN MS NOTES PT AWAKE, ALERT AND ORIENTED, SITTING IN HIS CHAIR, DENIES PAIN, NOT IN DISTRESS, DISCHARGE ORDER GIVEN BY DR. KAUR, DISHARGE AND MEDICATION INSTRUCTIONS PROVIDED BY MD TO PT AND FAMILY MEMBERS, VERBALIZED UNDERSTANDING, FERRLICIT IV GIVEN, PT TO SEE DR. KAUR ON TUESDAY, BELONGINGS ACCOUNTED FOR, NOTED BLANCHABLE REDNESS AT PT'S BUTTOCK AREA, EDUCATED PT TO KEEP IT CLEAN AND DRY, PT LIKES TO SIT IN HIS CHAIR FOR LONG PERIOD OF TIME, PT REFUSED PHOTO TO BE TAKEN, ASSISTED TO HOSPITAL LOBBY AND TO FAMILY CAR VIA WHEELCHAIR, LEFT IN STABLE CONDITION.
== END 2019-08-23 13:05 | disposition home or self-care (01) | DRG 378 ==
LOC: ER 20:17 → TELE 22:29 → MED 08-17 08:21
PROVIDERS: ADMIT Family Medicine; ATTEND Family Medicine
PROC: 30233N1 Transfusion of Nonautologous Red Blood Cells into Peripheral Vein, Percutaneous Approach (ICD-10-PCS; 2019-08-16)
PROC: 0DJD8ZZ Inspection of Lower Intestinal Tract, Via Natural or Artificial Opening Endoscopic (ICD-10-PCS; principal; 2019-08-18)
PROC: 0W3P8ZZ Control Bleeding in Gastrointestinal Tract, Via Natural or Artificial Opening Endoscopic (ICD-10-PCS; 2019-08-18)
DX: K25.4 Chronic or unspecified gastric ulcer with hemorrhage (principal); D62 Acute posthemorrhagic anemia; I13.0 Hypertensive heart and chronic kidney disease with heart failure and stage 1 through stage 4 chronic kidney disease, or unspecified chronic kidney disease; N17.9 Acute kidney failure, unspecified; K21.0 Gastro-esophageal reflux disease with esophagitis; K57.90 Diverticulosis of intestine, part unspecified, without perforation or abscess without bleeding; F41.9 Anxiety disorder, unspecified; I10 Essential (primary) hypertension; Z79.82 Long term (current) use of aspirin; K64.8 Other hemorrhoids; K44.9 Diaphragmatic hernia without obstruction or gangrene; Z96.652 Presence of left artificial knee joint; Z95.1 Presence of aortocoronary bypass graft; Z91.81 History of falling; Z87.891 Personal history of nicotine dependence; Z86.73 Personal history of transient ischemic attack (TIA), and cerebral infarction without residual deficits; F43.10 Post-traumatic stress disorder, unspecified; F41.0 Panic disorder [episodic paroxysmal anxiety]; F50.9 Eating disorder, unspecified; Z68.29 Body mass index [BMI] 29.0-29.9, adult; N40.0 Benign prostatic hyperplasia without lower urinary tract symptoms; E78.5 Hyperlipidemia, unspecified; E11.22 Type 2 diabetes mellitus with diabetic chronic kidney disease; F03.90 Unspecified dementia, unspecified severity, without behavioral disturbance, psychotic disturbance, mood disturbance, and anxiety; F32.9 Major depressive disorder, single episode, unspecified; G62.9 Polyneuropathy, unspecified; I16.0 Hypertensive urgency; I25.10 Atherosclerotic heart disease of native coronary artery without angina pectoris; I27.20 Pulmonary hypertension, unspecified; I50.9 Heart failure, unspecified; E11.42 Type 2 diabetes mellitus with diabetic polyneuropathy; R41.3 Other amnesia; J44.9 Chronic obstructive pulmonary disease, unspecified; I70.0 Atherosclerosis of aorta; N18.9 Chronic kidney disease, unspecified; M81.0 Age-related osteoporosis without current pathological fracture; M10.9 Gout, unspecified; N45.3 Epididymo-orchitis; I44.0 Atrioventricular block, first degree; Z82.49 Family history of ischemic heart disease and other diseases of the circulatory system; Z83.3 Family history of diabetes mellitus
CPT/HCPCS: 36415; 71045-TC; 76870-TC; 80048-TC; 80053-TC; 80076-TC; 81000-TC; 82272-TC; 82570-TC; 82962-TC; 83690-TC; 83735-TC; 83880; 84100-TC; 84155-TC; 84300-TC; 84484-TC; 84550-TC; 85025-TC; 86850-TC; 86921-TC; 87081-TC; 87086-TC; 88305-TC; 88313-TC; 88342; 93307-TC; 97110-TC; 97112-TC; 97116-TC; 97530-TC; A4216; C9113; G0378; J1940; J1956; J2704; J2916; J3010; J3490; J7030; J7040; J7050; P9016-BL

== ENCOUNTER 2020-05-13 21:17 | Inpatient (IN) | payer MEDICARE, OTHER ==
[~2020-05-13] VITALS: Ht 165.1 cm; Wt 83.5 kg
[~2020-05-13 21:17] MED LIST changes: +AMLO-212 PO; +AMYL1CAP58 PO; +CLOP75TA15 PO; +COLE3.75 PO; -FAMO20TA80 PO; +FENO134C PO; -FINA5TAB3 PO; -FURO10VI PO; -GABA300C PO; -HYDR-3980 PO; -HYDR-4077 PO; +ICOS1CAP PO; -LOSA1TAB3 PO; +MAGN400T8 PO; +MELO-107 PO; +METO25TA6 PO; +MONT10TA22 PO; +PARO20TA7 PO; -RANI150T8 PO; +TRIA0.252 PO
--- NOTE | 2020-05-13 21:20 | NUR ---
PT AAOX4. JAPANESE SPEAKING. BIBRA 39 FROM HOME FOR C/O GEN WEAKNESS AND BODY ACHE XCOUPLE DAYS. PT WAS DIAGNOSED W/ COIVD 3 WKS AGO AND WAS DISCHARGED FROM [facility] LAST WEEK. UPON ARRIVAL, PT PLACED IN BED 8 ON EXCEPTIONAL NEEDS TEACHER AND PULSE OX. SINUS ON MONITOR, SAT 100 ON 2L NC. VSS. LINE ESTABLISHED RF 20G, BLOOD DRAWN, AND SENT TO LAB. AT BEDSIDE FOR EVAL. AWAITING OTHER ORDERS.
--- NOTE | 2020-05-13 21:44 | NUR ---
DEVENDRA, DAUGHTER: [phone]
--- NOTE | 2020-05-13 21:48 | NUR ---
EMS INSTRUCTOR AT BEDSIDE FOR BLOOD WORK.
--- NOTE | 2020-05-13 21:54 | NUR ---
EMT AT BEDSIDE FOR EKG
[2020-05-13 22:21] LABS: BASOPHILS # (AUTO) 0.1 /CMM (0.0-0.2); BASOPHILS % (AUTO) 0.8 % (0.0-2.0); LYMPHOCYTES # (AUTO) 0.7 /CMM (0.8-4.8); LYMPHOCYTES % (AUTO) 7.3 % (20.0-44.0); MEAN CORPUSCULAR HGB CONC 33 g/dl (31.0-36.0); MEAN CORPUSCULAR VOLUME 90 fL (80-96); MONOCYTES # (AUTO) 0.5 /CMM (0.1-1.30); MONOCYTES % (AUTO) 5.4 % (2.0-12.0); NEUTROPHILS # (AUTO) 8.1 /CMM (1.8-8.9); NEUTROPHILS % (AUTO) 83.5 % (43.0-81.0); PLATELET COUNT (AUTO) 238 /CMM (150-450); RED BLOOD CELL COUNT(AUTO) 1.65 MIL/uL (4.5-6.0); WHITE BLOOD COUNT (AUTO) 9.7 K/uL (4.3-11.0)
[2020-05-13 22:22] LABS: HEMOGLOBIN 4.9 g/dL (13.5-17.5)
[2020-05-13 22:23] LABS: HEMATOCRIT 15 % (39-51)
[2020-05-13 22:35] LABS: CALCIUM, SERUM 8.2 mg/dL (8.5-10.1); CARBON DIOXIDE 22 mmol/L (21-32); CHLORIDE 103 mmol/L (98-107); CREATININE 2.5 mg/dL (0.6-1.3); GLUCOSE 111 mg/dL (74-106); POTASSIUM 5.9 mmol/L (3.5-5.1); SODIUM SERUM 133 mmol/L (136-145); UREA NITROGEN, BLOOD 55 mg/dL (7-18)
--- NOTE | 2020-05-13 22:37 | NUR ---
CALLED FOR PCR COVID SWAB
--- NOTE | 2020-05-13 22:40 | NUR ---
SPOKE TO THE PT REGARDING LOW HGB. PT AWARE HE WILL BE ADMITTED.
--- NOTE | 2020-05-13 22:43 | NUR ---
SEPIDEHID SWABBED, SENT TO LAB.
--- NOTE | 2020-05-13 22:45 | NUR ---
DR CLAY ON THE PHONE W/ DR KAUR
[2020-05-13 22:48] LABS: ALANINE AMINOTRANSFERASE 52 U/L (12-78); ALBUMIN 2.3 g/dL (3.4-5.0); ALKALINE PHOSPHATASE 52 U/L (46-116); ASPARTATE AMINOTRANSFERASE 29 U/L (15-37); B-TYPE NATRIURETIC PEPTIDE 1598 PG/ML (0-125); BILIRUBIN,DIRECT 0.1 mg/dL (0.0-0.2); BILIRUBIN,TOTAL 0.2 mg/dL (0.2-1.0); TOTAL PROTEIN, SERUM 5.7 g/dL (6.4-8.2)
--- NOTE | 2020-05-13 22:55 | NUR ---
DANNA HAYES SPEAKING TO LOLIS HAYES REGARDING PT
--- NOTE | 2020-05-13 23:00 | NUR ---
MD AND PT SIGNED CONSENT.
[2020-05-13 23:19] LABS: EOSINOPHILS % (MANUAL) 1 % (0-4); LYMPHOCYTES % (MANUAL) 6 % (16-48); MONOCYTES % (MANUAL) 3 % (0-11.0); NEUTROPHILS % (MANUAL) 90 (42-76)
--- NOTE | 2020-05-13 23:21 | NUR ---
SPOKE TO THE PT'S FAMILY REGARDING MED LIST. UPDATED PLAN OF CARE. PT'S FAMILY WILL VISIT TOMORROW MORNING TO DROP OFF BELONGINGS.
[2020-05-13] MEDS ORDERED: CYAN-51 PO (23:25)
[2020-05-13] MEDS ORDERED: PANT40TA49 PO (23:25)
[2020-05-13] MEDS ORDERED: CLOP75TA15 PO (23:25)
[2020-05-13] MEDS ORDERED: ZINC50TA39 PO (23:25)
[2020-05-14] VITALS (15 sets, daily range): BP systolic 126–159; BP diastolic 50–69
[2020-05-14] MEDS ORDERED: HYDROCODONE/APAP 5/325MG TABLET PO PRN
[2020-05-14] MEDS ORDERED: MAG HYDROX/AL HYDROX/SIMETH 30 ML UDC PO PRN
[2020-05-14] MEDS ORDERED: Z GUARD REMEDY 2 OZ OINT TP PRN
[2020-05-14] MEDS ORDERED: LORAZEPAM 1 MG TABLET PO PRN
[2020-05-14] MEDS ORDERED: HYDROCODONE/APAP 10/325MG TABLET PO PRN
[2020-05-14] MEDS ORDERED: MAGNESIUM HYDROXIDE 30 ML UDC PO PRN
[2020-05-14] MEDS ORDERED: TRAMADOL HCL 50 MG TABLET PO PRN
[2020-05-14] MEDS ORDERED: ONDANSETRON HCL/PF 4 MG/2 ML VIAL IVP PRN
[2020-05-14] MEDS ORDERED: ZOLPIDEM TARTRATE 5 MG TABLET PO PRN
[2020-05-14] MEDS ORDERED: TRIAZOLAM 0.125 MG TABLET PO PRN
--- NOTE | 2020-05-14 00:03 | NUR ---
REPORT GIVEN TO EZE CORRAL FOR FABIANA
--- NOTE | 2020-05-14 00:45 | NUR ---
BLOOD BRAVO. INITIATED.
--- NOTE | 2020-05-14 01:15 | NUR ---
CALLED EZE CORRAL. PT TRANSFERED PER ACLS PROTOCOL
--- NOTE | 2020-05-14 01:30 | NUR ---
CHEMICALS FERMENTATION OPERATORCAE ENGINEER NOTES RECEIVED PATIENT FROM ER VIA GURNEY, ALERT AND ORIENTED X 2-3. TURKMEN SPEAKING MAINLY, ABLE TO FOLLOW DIRECTIONS. BREATHING REGULAR AND UNLABORED ON ROOM AIR. RIGHT FOREARM G20 IV LINE INTACT AND PATENT WITH ON-GOING BLOOD TRANSFUSION INFUSING WELL. BODY ASSESSMENT DONE, NOTED WITH SACRAL AND BILATERAL GROIN REDNESS; ABDOMINAL AND LEFT HAND BRUISES AND LEFT POSTERIOR LEG SCABS. PHOTOS TAKEN, KEPT IN CHART. ATTACHED TO MEDICAL CENTER REPRESENTATIVE WITH 2ND DEGREE HEART BLOCK/PVC's AT 68bpm. NO S/S OF PAIN/DISCOMFORT SEEN AT THIS TIME. VITAL SIGNS AND BELONGINGS CHECKED. BED LOW AND LOCKED ON SEMI FOWLERS POSITION. CALL LIGHT IN REACH. WILL CONTINUE TO MONITOR.
--- NOTE | 2020-05-14 03:00 | NUR ---
AUTOMOBILE LEASING SUPERVISOR NOTES 1ST BAG OF PRBC INFUSED, VITAL SIGNS TAKEN AND DOCUMENTED. PATIENT REMAINED ALERT AND ORIENTED X 2. WILL CONTINUE TO MONITOR.
--- NOTE | 2020-05-14 03:00 | NUR ---
ACCOUNTANT CERTIFIED PUBLIC NOTES PLACED PATIENT ON FULL CODE FOR NOW, UNABLE TO GET INFORMATION OF CODE STATUS. CALLED SON DANI, NOT PICKING-UP LEFT A MESSAGE INSTEAD. ASKED THE PATIENT BUT UNABLE TO UNDERSTAND DUE TO LANGUAGE BARRIER AND CURRENT MENTAL STATUS. WILL ENDORSE ACCORDINGLY.
--- NOTE | 2020-05-14 03:40 | NUR ---
WATCH MANUFACTURING SUPERVISOR NOTES 2ND BAG OF PRBC STARTED, VITAL SIGNS TAKEN PRIOR. BLOOD PRODUCT VERIFIED. IV SITE STILL PATENT AND INTACT. WILL CLOSELY MONITOR FOR S/S OF TRANSFUSION REACTION.
--- NOTE | 2020-05-14 06:45 | NUR ---
OUTBOARD MOTORBOAT RIGGER CLOSING NOTES PATIENT IN BED ALERT AND ORIENTED X 2-3. AFEBRILE WITH NO S/S OF DISTRESS OBSERVED. RIGHT FOREARM IV LINE INTACT AND FLUSHING WELL. S/P BLOOD TRANSFUSION OF 2ND BAG OF PRBC, CONTINUOUSLY MONITORED FOR TRANSFUSION REACTIONS. MAINTAINED ON CARDIAC MONITORING WITH NSR WITH PVC's AT 68bpm. NO S/S OF PAIN/DISCOMFORT NOTED. BED LOW AND LOCKED ON SEMI FOWLERS POSITION. CALL LIGHT IN REACH. WILL ENDORSE TO MORNING SHIFT FOR FABIANA.
[2020-05-14 07:54] LABS: BASOPHILS # (AUTO) 0.1 /CMM (0.0-0.2); BASOPHILS % (AUTO) 0.7 % (0.0-2.0); EOSINOPHILS % (AUTO) 2.9 % (0.0-6.0); HEMATOCRIT 21 % (39-51); LYMPHOCYTES # (AUTO) 0.9 /CMM (0.8-4.8); MEAN CORPUSCULAR HGB CONC 34 g/dl (31.0-36.0); MEAN CORPUSCULAR VOLUME 89 fL (80-96); MONOCYTES # (AUTO) 0.4 /CMM (0.1-1.30); MONOCYTES % (AUTO) 4.1 % (2.0-12.0); NEUTROPHILS # (AUTO) 8.3 /CMM (1.8-8.9); NEUTROPHILS % (AUTO) 83.3 % (43.0-81.0); PLATELET COUNT (AUTO) 222 /CMM (150-450); RED BLOOD CELL COUNT(AUTO) 2.33 MIL/uL (4.5-6.0)
[2020-05-14 08:22] LABS: CALCIUM, SERUM 7.9 mg/dL (8.5-10.1); CARBON DIOXIDE 24 mmol/L (21-32); CHLORIDE 106 mmol/L (98-107); CREATININE 2.1 mg/dL (0.6-1.3); GLUCOSE 100 mg/dL (74-106); MAGNESIUM 2.2 mg/dL (1.8-2.4); PHOSPHORUS 3.7 mg/dL (2.5-4.9); POTASSIUM 5.4 mmol/L (3.5-5.1); SODIUM SERUM 136 mmol/L (136-145); UREA NITROGEN, BLOOD 44 mg/dL (7-18)
[2020-05-14] MEDS: LIPASE/PROTEASE/AMYLASE 1 EACH CAPSULE.DR PO SCH ×3 (08:30→17:32)
--- NOTE | 2020-05-14 08:30 | NUR ---
TELE/RN NOTE Paged Dr. Francois regarding patient, states "refer to the hospitalist, I won't be taking care of patient since I won't be able to visit."
[2020-05-14 08:32] LABS: CHOLESTEROL 136 mg/dL (<200); HDL CHOLESTEROL 23 mg/dL (40-60); LDL 71 mg/dL (0-99); THYROID STIMULATING HORMONE 1.004 uIU/mL (0.358-3.74); TRIGLYCERIDES 250 mg/dL (30-150)
[2020-05-14] MEDS: FENOFIBRATE NANOCRYS (145 MG) 145 MG TABLET PO SCH (09:00)
[2020-05-14] MEDS: PANTOPRAZOLE 40 MG TABLET.DR PO SCH (09:00)
[2020-05-14] MEDS: FINASTERIDE (5 MG) 5 MG TABLET PO SCH (09:00)
[2020-05-14] MEDS: METOPROLOL TARTRATE 25 MG TABLET PO SCH ×2 (09:00→17:33)
[2020-05-14] MEDS: MAGNESIUM OXIDE 400 MG TABLET PO SCH (09:00)
[2020-05-14] MEDS: AMLODIPINE BESYLATE 5 MG TABLET PO SCH ×2 (09:00→17:33)
[2020-05-14] MEDS ORDERED: Icosapent Ethyl (Vascepa) 1 GM PO SCH (09:00)
[2020-05-14] MEDS: ISOSORBIDE DINITRATE (20MG) 20 MG TABLET PO SCH (09:00)
[2020-05-14] MEDS: PAROXETINE HCL 20 MG TABLET PO SCH (09:00)
[2020-05-14] MEDS: hydrALAZINE HCL 50 MG TABLET PO SCH ×2 (09:00→17:33)
[2020-05-14] MEDS: ATORVASTATIN 40 MG TABLET PO SCH (09:00)
[2020-05-14] MEDS ORDERED: COLESEVELAM HCL PO SCH (09:00)
[2020-05-14] MEDS: TAMSULOSIN 0.4 MG CAP.SR.24H PO SCH (09:00)
[2020-05-14] MEDS: MONTELUKAST SODIUM (10MG) 10 MG TABLET PO SCH (09:00)
[2020-05-14 09:17] LABS: THYROID STIMULATING HORMONE 1.138 uIU/mL (0.358-3.74)
--- NOTE | 2020-05-14 09:18 | NUR ---
WOUND CARE CONSULT: REVIEWED CHART, NURSING DOCUMENTATION AND PHOTOS WHICH INDICATE REDNESS AND RASHES TO INNER BUTTOCKS, GROIN FOLDS AND PERINEUM, PRESENT ON ADMISSION. RECOMMENDATIONS MADE FOR SKIN PROTECTION. DISCUSSED WITH NURSING STAFF. MD IN AGREEMENT WITH PLAN FO CARE. CURRENT JONY SCORE IS 14.
--- NOTE | 2020-05-14 09:40 | NUR ---
TELE/RN NOTE Infusing 3rd unit of PRBCs per order, started at 60 ml/hr. Pre-vital signs stable, will continue to monitor.
--- NOTE | 2020-05-14 09:55 | NUR ---
TELE/RN NOTE Patient tolerating blood transfusion well, increased to 100 ml/hr. VSS, afebrile, no SOB noted. Will continue to monitor.
--- NOTE | 2020-05-14 10:00 | NUR ---
TELE/RN NOTE Dr. Farnsworth at bedside, ordered to keep patient NPO. Reported patient's H&H 7.0/21, states to end the blood transfusion after this bag. Will continue to monitor.
[2020-05-14] MEDS: FUROSEMIDE 100 MG/10 ML VIAL IV SCH ×3 (10:09→17:31)
[2020-05-14 10:35] LABS: MAGNESIUM 2.3 mg/dL (1.8-2.4)
--- NOTE | 2020-05-14 11:07 | NUR ---
TELE/RN NOTE Dr. Harper requests hospital documents from patient's recent stay at [facility]. Called Vijay, daughter, to verify dates of hospitalization (04/21/2020-05/05/2020) and obtained consent from patient for authorization to release information. Faxed authorization at [phone], and confirmed with Miguel from [facility]- Medical Records for acceptance of fax request.
[2020-05-14 11:22] LABS: PHOSPHORUS 3.8 mg/dL (2.5-4.9)
--- NOTE | 2020-05-14 11:30 | NUR ---
TELE/RN NOTE Tarry black stool x 1 noted. Will continue to monitor.
--- NOTE | 2020-05-14 11:52 | NUR ---
TELE/RN NOTE Ended blood transfusion, patient remained stable. VSS, afebrile, no SOB noted. No adverse reactions noted. Will continue to monitor.
--- NOTE | 2020-05-14 14:26 | NUR ---
TELE/RN NOTE Patient had second episode of bloody tarry stools, MD made aware, no new orders at this time. Also notified Dr. Farnsworth that patient is hungry and wants to at least drink water, ordered to advance diet to clear liquid. Order carried out. Will continue to monitor.
--- NOTE | 2020-05-14 15:30 | NUR ---
TELE/RN NOTE Collected covid 19 JACK swab. Sent to lab.
[2020-05-14] MEDS: CLOTRIMAZOLE 1% 15 GM TUBE TP SCH (17:31)
--- NOTE | 2020-05-14 19:30 | NUR ---
TELE/RN CLOSING NOTE Patient resting in bed, A&O x 3. All needs met and attended to. No complaints of pain and discomfort at this time. Breathing even and non-labored on RA, no SOB noted. No cardiac distress noted. On tele monitor, reading 2nd degree heart block HR 82. IV access noted on R FA #20 gauge, patent and intact, and flushing well. Sensation from all peripheral extremities intact. Fall precautions maintained. Will endorse to accounting professor nurse.
--- NOTE | 2020-05-14 19:30 | NUR ---
TELE/RN OPENING NOTE Received patient resting in bed, A&O x 3, Bel[place]ian speaking. No complaints of pain and discomfort at this time. Breathing even and non-labored on RA, no SOB noted. No cardiac distress noted. On tele monitor, reading 2nd degree heart block HR 74. IV access noted on R FA #20 gauge, patent and intact, and flushing well. Sensation from all peripheral extremities intact. Bed locked to its lowest position, call light in hand, side rails x 2 up. Will continue to monitor for any changes of condition.
--- NOTE | 2020-05-14 19:30 | NUR ---
LIFE SCIENCES DIRECTOR NOTES PATIENT IN BED, AWAKE, ALERT AND ORIENTED X 2-3. BREATHING EVEN AND UNLABORED ON ROOM AIR. SHOWS NO SIGNS OF ACUTE RESPIRATORY DISTRESS, NO ACUTE PAIN. ON TELE MONITOR SB 2ND DEGREE AV BLOCK. PT IS INCONTINENT WITH MILLER CATHETER INTACT AND INPLACE. FLOWING YELLOW URINE. IV ON R FA 20G ITS CLEAN DRY AND INTACT. FLUSHING WELL. ISOLATION PRECAUTION IN PLACE. SAFETY PRECAUTIONS IN PLACE, BED ALARM ON. BED IN LOWEST POSITION, LOCKED, AND CALL LIGHT KEPT WITHIN REACH. WILL CONTINUE TO MONITOR.
[2020-05-15] VITALS: BP 134/69
[2020-05-15 04:00] VITALS: BP 107/61
[2020-05-15 06:25] LABS: ALANINE AMINOTRANSFERASE 42 U/L (12-78); ALBUMIN 2.7 g/dL (3.4-5.0); ALKALINE PHOSPHATASE 58 U/L (46-116); ASPARTATE AMINOTRANSFERASE 21 U/L (15-37); BILIRUBIN,TOTAL 0.7 mg/dL (0.2-1.0); CALCIUM, SERUM 8.4 mg/dL (8.5-10.1); CARBON DIOXIDE 23 mmol/L (21-32); CHLORIDE 99 mmol/L (98-107); CREATININE 2.4 mg/dL (0.6-1.3); GLUCOSE 115 mg/dL (74-106); POTASSIUM 4.9 mmol/L (3.5-5.1); SODIUM SERUM 133 mmol/L (136-145); TOTAL PROTEIN, SERUM 6.3 g/dL (6.4-8.2); UREA NITROGEN, BLOOD 50 mg/dL (7-18)
--- NOTE | 2020-05-15 06:32 | NUR ---
FIXED ROUTE BUS OPERATOR NOTES PATIENT IN BED, ASLEEP, ALERT AND ORIENTED X 2-3. BREATHING EVEN AND UNLABORED ON ROOM AIR. SHOWS NO SIGNS OF ACUTE RESPIRATORY DISTRESS, NO ACUTE PAIN. ON TELE MONITOR SB 2ND DEGREE AV BLOCK. PT IS INCONTINENT WITH MILLER CATHETER INTACT AND INPLACE. FLOWING YELLOW URINE. IV ON R FA 20G ITS CLEAN DRY AND INTACT. FLUSHING WELL. ALL NEEDS ATTENDED TO. ISOLATION PRECAUTIONS IN PLACE. SAFETY PRECAUTIONS IN PLACE. BED IN LOWEST POSITION, LOCKED, AND CALL LIGHT KEPT WITHIN REACH. WILL ENDORSE TO ONCOMING NURSE.
[2020-05-15 06:37] LABS: BASOPHILS # (AUTO) 0.1 /CMM (0.0-0.2); BASOPHILS % (AUTO) 0.4 % (0.0-2.0); EOSINOPHILS % (AUTO) 2.2 % (0.0-6.0); HEMATOCRIT 27 % (39-51); HEMOGLOBIN 8.9 g/dL (13.5-17.5); LYMPHOCYTES # (AUTO) 0.8 /CMM (0.8-4.8); LYMPHOCYTES % (AUTO) 5.5 % (20.0-44.0); MEAN CORPUSCULAR HGB CONC 33 g/dl (31.0-36.0); MEAN CORPUSCULAR VOLUME 90 fL (80-96); MONOCYTES # (AUTO) 0.5 /CMM (0.1-1.30); MONOCYTES % (AUTO) 3.4 % (2.0-12.0); NEUTROPHILS # (AUTO) 12.5 /CMM (1.8-8.9); NEUTROPHILS % (AUTO) 88.5 % (43.0-81.0); PLATELET COUNT (AUTO) 334 /CMM (150-450); RED BLOOD CELL COUNT(AUTO) 2.99 MIL/uL (4.5-6.0); WHITE BLOOD COUNT (AUTO) 14.1 K/uL (4.3-11.0)
--- NOTE | 2020-05-15 07:10 | NUR ---
ms rn received on bed, awake,alert,oriented x2-3, not inany form of distress, respirations even and unlabored,no sob noted, lungs are diminish,abdomen soft,positive bowel sounds,denies pain at this time,all needs attended.
[2020-05-15 08:00] VITALS: BP 144/62
--- NOTE | 2020-05-15 08:10 | NUR ---
ms rn breakfast served,tolerated well.
[2020-05-15] MEDS: FENOFIBRATE NANOCRYS (145 MG) 145 MG TABLET PO SCH (08:52)
[2020-05-15] MEDS: FINASTERIDE (5 MG) 5 MG TABLET PO SCH (08:52)
[2020-05-15] MEDS: LIPASE/PROTEASE/AMYLASE 1 EACH CAPSULE.DR PO SCH ×3 (08:52→17:26)
[2020-05-15] MEDS: PANTOPRAZOLE 40 MG TABLET.DR PO SCH (08:53)
[2020-05-15] MEDS: MAGNESIUM OXIDE 400 MG TABLET PO SCH (08:53)
[2020-05-15] MEDS: TAMSULOSIN 0.4 MG CAP.SR.24H PO SCH (08:53)
[2020-05-15] MEDS: METOPROLOL TARTRATE 25 MG TABLET PO SCH ×2 (08:53→16:23)
[2020-05-15] MEDS: MONTELUKAST SODIUM (10MG) 10 MG TABLET PO SCH (08:53)
[2020-05-15] MEDS: ATORVASTATIN 40 MG TABLET PO SCH (08:53)
[2020-05-15] MEDS: ISOSORBIDE DINITRATE (20MG) 20 MG TABLET PO SCH (08:53)
[2020-05-15] MEDS: AMLODIPINE BESYLATE 5 MG TABLET PO SCH ×2 (08:53→16:23)
[2020-05-15] MEDS: PAROXETINE HCL 20 MG TABLET PO SCH (08:53)
[2020-05-15] MEDS: hydrALAZINE HCL 50 MG TABLET PO SCH ×2 (08:54→16:23)
--- NOTE | 2020-05-15 09:30 | NUR ---
ms rn due meds given,tolerated well.
[2020-05-15 10:32] VITALS: BP 144/62
--- NOTE | 2020-05-15 14:00 | NUR ---
ms rn covid test result received negative, clarified w/ carlos calles to transfer to [facility].
[2020-05-15] MEDS: CLOTRIMAZOLE 1% 15 GM TUBE TP SCH ×2 (15:22→17:37)
--- NOTE | 2020-05-15 15:45 | NUR ---
ms rn patient transferred to [facility],report given to Sunita.
--- NOTE | 2020-05-15 15:51 | NUR ---
TRANSFERRED FROM MS2 TO CLEAN FLOOR Patient arrived from second floor to clean unit, bedside report given by Jeannette RN. Patient is a/o x3, showing no signs of acute distress or SOB, stable on RA. BP 130/60 HR 69 O2 sat 97% on RA RR16 T 97.9F. Bed is in lowest position, side rails x2 in upright position, call light is within reach, fall safety and aspiration precautions enforced. Will continue with plan of care.
[2020-05-15 16:00] VITALS: BP 130/60
--- NOTE | 2020-05-15 18:47 | NUR ---
AXLE BEARING POLISHER NOTE Patient is resting in bed, A/O x3, showing no signs of acute distress or SOB, stable on RA. Tele monitor sinus bradycardia with 1st degree block and has episodes of second degree block. Patient denies any pain or discomfort at this time. IV line in the RFA #20g is clean and intact flushing well. All patient needs met, all due medications given, patient kept clean and dry. Bed is in lowest position, side rails x2 in upright position, call light is within reach, fall safety and aspiration precautions enforced. Will endorse to night nurse for FABIANA.
[2020-05-15 20:00] VITALS: BP 140/54
--- NOTE | 2020-05-15 20:09 | NUR ---
RN OPENING NOTE: Patient in bed resting comfortably. Patient in room air with no signs of SOB or acute respiratory distress. Breathing even and unlabored. Patient alert and oriented x3, able to make needs known. Noted IV access on right forearm, 20 gauge, dry and intact, patent, no redness or infiltration. On cardiac monitoring, sinus gretchen. Safety precaution in place, bed is in the lowest level, bed is locked, alarm is on, side rails x2 are up, and call light is within reach. Will continue to monitor.
[2020-05-15] MEDS: ACETAMINOPHEN 325 MG TABLET PO PRN (20:51)
--- NOTE | 2020-05-15 20:52 | NUR ---
Patient complains of bilateral lower extremity muscle pain. Patient rates pain a 3 on a 0-10 numerical scale and describes it as aching. Administered PRN Tylenol per MD order.
[2020-05-16] VITALS (14 sets, daily range): BP systolic 102–144; BP diastolic 43–66
[2020-05-16] MEDS: ACETAMINOPHEN 325 MG TABLET PO PRN (03:08)
--- NOTE | 2020-05-16 06:49 | NUR ---
RN CLOSING NOTE: Patient in bed sleeping comfortably. Patient shows no signs of SOB or acute respiratory distress. All needs were taken care of. Safety precaution is maintained, bed is in the lowest level, wheels are locked, alarm is on, side rails x2 are up, and call light is within reach. Will endorse to next shift.
[2020-05-16 08:25] LABS: BASOPHILS % (AUTO) 0.4 % (0.0-2.0); EOSINOPHILS % (AUTO) 3.3 % (0.0-6.0); HEMATOCRIT 21 % (39-51); HEMOGLOBIN 7.1 g/dL (13.5-17.5); LYMPHOCYTES # (AUTO) 0.8 /CMM (0.8-4.8); LYMPHOCYTES % (AUTO) 8.9 % (20.0-44.0); MEAN CORPUSCULAR HGB CONC 34 g/dl (31.0-36.0); MEAN CORPUSCULAR VOLUME 90 fL (80-96); MONOCYTES # (AUTO) 0.5 /CMM (0.1-1.30); MONOCYTES % (AUTO) 5.2 % (2.0-12.0); NEUTROPHILS # (AUTO) 7.7 /CMM (1.8-8.9); NEUTROPHILS % (AUTO) 82.2 % (43.0-81.0); PLATELET COUNT (AUTO) 255 /CMM (150-450); RED BLOOD CELL COUNT(AUTO) 2.34 MIL/uL (4.5-6.0); WHITE BLOOD COUNT (AUTO) 9.3 K/uL (4.3-11.0)
[2020-05-16] MEDS: hydrALAZINE HCL 50 MG TABLET PO SCH ×2 (09:00→17:00)
[2020-05-16] MEDS: CLOTRIMAZOLE 1% 15 GM TUBE TP SCH ×2 (09:08→17:33)
[2020-05-16] MEDS: ATORVASTATIN 40 MG TABLET PO SCH (09:15)
[2020-05-16] MEDS: PAROXETINE HCL 20 MG TABLET PO SCH (09:15)
[2020-05-16] MEDS: METOPROLOL TARTRATE 25 MG TABLET PO SCH ×2 (09:15→17:00)
[2020-05-16] MEDS: AMLODIPINE BESYLATE 5 MG TABLET PO SCH ×2 (09:16→17:00)
[2020-05-16] MEDS: FENOFIBRATE NANOCRYS (145 MG) 145 MG TABLET PO SCH (09:16)
[2020-05-16] MEDS: MAGNESIUM OXIDE 400 MG TABLET PO SCH (09:16)
[2020-05-16] MEDS: PANTOPRAZOLE 40 MG TABLET.DR PO SCH (09:16)
[2020-05-16] MEDS: TAMSULOSIN 0.4 MG CAP.SR.24H PO SCH (09:16)
[2020-05-16] MEDS: FINASTERIDE (5 MG) 5 MG TABLET PO SCH (09:16)
[2020-05-16] MEDS: ISOSORBIDE DINITRATE (20MG) 20 MG TABLET PO SCH (09:17)
[2020-05-16] MEDS: MONTELUKAST SODIUM (10MG) 10 MG TABLET PO SCH (09:20)
[2020-05-16] MEDS: LIPASE/PROTEASE/AMYLASE 1 EACH CAPSULE.DR PO SCH ×3 (09:21→17:32)
[2020-05-16 10:15] LABS: ALANINE AMINOTRANSFERASE 33 U/L (12-78); ALBUMIN 2.2 g/dL (3.4-5.0); ALKALINE PHOSPHATASE 53 U/L (46-116); ASPARTATE AMINOTRANSFERASE 20 U/L (15-37); BILIRUBIN,TOTAL 0.5 mg/dL (0.2-1.0); CARBON DIOXIDE 26 mmol/L (21-32); CHLORIDE 103 mmol/L (98-107); CREATININE 2.4 mg/dL (0.6-1.3); GLUCOSE 96 mg/dL (74-106); MAGNESIUM 2.1 mg/dL (1.8-2.4); PHOSPHORUS 4.5 mg/dL (2.5-4.9); POTASSIUM 4.8 mmol/L (3.5-5.1); SODIUM SERUM 135 mmol/L (136-145); TOTAL PROTEIN, SERUM 5.2 g/dL (6.4-8.2); UREA NITROGEN, BLOOD 55 mg/dL (7-18)
--- NOTE | 2020-05-16 17:00 | NUR ---
BULLDOZER PRESS OPERATOR NOTES METOPROLOL HELD PATIENT SB ON TELE MONITOR RANGING FROM 38-63.
--- NOTE | 2020-05-16 18:45 | NUR ---
COMMODITY INDUSTRY ANALYST NOTES PATIENT IN BED RESTING NO SOB OR ACUTE DISTRESS NOTED. PATIENT ALERT, ORIENTED X4. PATIENT TOLERATED BLOOD TRANSFUSION OF 1 UNIT. NO ADVERSE EFFECTS NOTED. ALL DUE MEDICATIONS ADMINISTERED. ALL NEEDS MET. NO ACUTE CHANGES NOTED. WILL ENDORSE CARET TO PM SHIFT.
--- NOTE | 2020-05-16 19:53 | NUR ---
RN OPENING NOTES PATIENT RECEIVED RESTING IN BED A/O X 3. ON 2L OF O2 WITH BREATHING EVEN AND UNLABORED, NO SOB NOTED. NO SIGNS OF ACTE DISTRESS. NO COMPLAINTS OF PAIN OR DISCOMFORT AT THE MOMENT. TELE MONITOR READING SB . IV LOCATED ON RFA #20 SL PATENT AND INTACT. SAFETY PRECAUTIONS IN PLACE WITH BED IN LOWEST POSITION, CALL LIGHT WITHIN REACH, BREAKS ON, SIDE RAILS UP. WILL CONTINUE TO MONITOR THROUGHOUT THE NIGHT.
[2020-05-17] VITALS: BP 126/57
[2020-05-17] MEDS: ACETAMINOPHEN 325 MG TABLET PO PRN ×2 (00:35→09:00)
[2020-05-17 04:00] VITALS: BP 149/51
[2020-05-17 06:54] LABS: BASOPHILS % (AUTO) 0.6 % (0.0-2.0); EOSINOPHILS % (AUTO) 4.6 % (0.0-6.0); HEMATOCRIT 25 % (39-51); HEMOGLOBIN 8.3 g/dL (13.5-17.5); LYMPHOCYTES # (AUTO) 0.8 /CMM (0.8-4.8); LYMPHOCYTES % (AUTO) 9.6 % (20.0-44.0); MEAN CORPUSCULAR HGB CONC 33 g/dl (31.0-36.0); MEAN CORPUSCULAR VOLUME 90 fL (80-96); MONOCYTES # (AUTO) 0.5 /CMM (0.1-1.30); MONOCYTES % (AUTO) 5.9 % (2.0-12.0); NEUTROPHILS # (AUTO) 6.3 /CMM (1.8-8.9); NEUTROPHILS % (AUTO) 79.3 % (43.0-81.0); PLATELET COUNT (AUTO) 258 /CMM (150-450); RED BLOOD CELL COUNT(AUTO) 2.77 MIL/uL (4.5-6.0)
--- NOTE | 2020-05-17 06:54 | NUR ---
RN CLOSING NOTES PATIENT RESTING IN BED A/O X 3. ON 2L OF O2 WITH BREATHING EVEN AND UNLABORED, NO SOB NOTED. NO SIGNS OF ACTE DISTRESS. NO COMPLAINTS OF PAIN OR DISCOMFORT AT THE MOMENT. IV LOCATED ON RFA #20 SL PATENT AND INTACT. SAFETY PRECAUTIONS IN PLACE WITH BED IN LOWEST POSITION, CALL LIGHT WITHIN REACH, BREAKS ON, SIDE RAILS UP. ALL NEEDS ATTENDED TO. PATIENT KEPT CLEAN AND DRY THROUGHOUT THE NIGHT. WILL ENDORSE TO ONCOMING SHIFT ABOUT FABIANA.
[2020-05-17 07:17] LABS: ALANINE AMINOTRANSFERASE 33 U/L (12-78); ALBUMIN 2.3 g/dL (3.4-5.0); ALKALINE PHOSPHATASE 55 U/L (46-116); ASPARTATE AMINOTRANSFERASE 20 U/L (15-37); BILIRUBIN,TOTAL 0.7 mg/dL (0.2-1.0); CALCIUM, SERUM 8.1 mg/dL (8.5-10.1); CARBON DIOXIDE 23 mmol/L (21-32); CHLORIDE 103 mmol/L (98-107); GLUCOSE 93 mg/dL (74-106); MAGNESIUM 2.1 mg/dL (1.8-2.4); PHOSPHORUS 3.7 mg/dL (2.5-4.9); POTASSIUM 4.7 mmol/L (3.5-5.1); SODIUM SERUM 135 mmol/L (136-145); TOTAL PROTEIN, SERUM 5.4 g/dL (6.4-8.2); UREA NITROGEN, BLOOD 52 mg/dL (7-18)
--- NOTE | 2020-05-17 07:48 | NUR ---
PAPER MILL SUPERVISOR NOTE PATIENT IN BED RESTING COMFORTABLY. PATIENT IN NO ACUTE DISTRESS. NO SOB NOTED. PATIENT BREATHING IS EVEN AND UNLABORED. PATIENT ON CARDIAC MONITORING READING SINUS BRADYCARDIA HR 59 WITH SECOND DEGREE BLOCK. PATIENT STATES NO PAIN AT THIS TIME. PATIENT BED ALARM IS ON. PATIENT SAFETY PRECAUTIONS IN PLACE. PATIENT BED IS LOCKED AND IN LOWEST POSITION. CALL LIGHT WITHIN REACH. WILL CONTINUE TO MONITOR.
[2020-05-17] MEDS: ISOSORBIDE DINITRATE (20MG) 20 MG TABLET PO SCH (08:54)
[2020-05-17] MEDS: FENOFIBRATE NANOCRYS (145 MG) 145 MG TABLET PO SCH (08:54)
[2020-05-17] MEDS: PANTOPRAZOLE 40 MG TABLET.DR PO SCH (08:55)
[2020-05-17] MEDS: ATORVASTATIN 40 MG TABLET PO SCH (08:56)
[2020-05-17] MEDS: FINASTERIDE (5 MG) 5 MG TABLET PO SCH (08:56)
[2020-05-17] MEDS: MONTELUKAST SODIUM (10MG) 10 MG TABLET PO SCH (08:56)
[2020-05-17] MEDS: MAGNESIUM OXIDE 400 MG TABLET PO SCH (08:56)
[2020-05-17] MEDS: PAROXETINE HCL 20 MG TABLET PO SCH (08:56)
[2020-05-17] MEDS: TAMSULOSIN 0.4 MG CAP.SR.24H PO SCH (08:56)
[2020-05-17] MEDS: LIPASE/PROTEASE/AMYLASE 1 EACH CAPSULE.DR PO SCH ×2 (08:56→12:44)
[2020-05-17 08:57] VITALS: BP 150/63
[2020-05-17] MEDS: AMLODIPINE BESYLATE 5 MG TABLET PO SCH (08:57)
[2020-05-17] MEDS: hydrALAZINE HCL 50 MG TABLET PO SCH (08:57)
[2020-05-17] MEDS: METOPROLOL TARTRATE 25 MG TABLET PO SCH (08:57)
[2020-05-17] MEDS: CLOTRIMAZOLE 1% 15 GM TUBE TP SCH (08:58)
--- NOTE | 2020-05-17 09:00 | NUR ---
POST GRADUATE INTERN NOTE PATIENT REQUESTING TYLENOL PRN ORDERED. TYLENOL PRN ORDERED GIVEN.
--- NOTE | 2020-05-17 10:54 | NUR ---
SHIP LINER NOTE PATIENT REFUSING SKIN ASSESSMENT. EDUCATED RISKS VS BENEFITS 3X. PATIENT CONTINUED TO REFUSE.
--- NOTE | 2020-05-17 13:14 | NUR ---
AUTOMATION ANALYST NOTE PATIENT MEDICALLY STABLE FOR DISCHARGE. PATIENT IN NO ACUTE DISTRESS. NO SOB NOTED. PATIENT BREATHING IS EVEN AND UNLABORED. PATIENT DC INSTRUCTIONS PROVIDED. PATIENT VERBALIZED UNDERSTANDING. DC INSTRUCTIONS GIVEN TO DAUGHTER. DR. COLLINS ALSO SPOKE WITH DAUGHTER AND GAVE UPDATED DISCHARGE PLAN AND INSTRUCTIONS. DAUGHTER VERBALIZED UNDERSTANDING. PATIENT IV REMOVED. ID BAND REMOVED. PATIENT REFUSED SKIN ASSESSMENT. EDUCATED RISKS VS BENEFITS. PATIENT CONTINUED TO REFUSE. PATIENT KEPT CLEAN, DRY, AND COMFORTABLE THROUGHOUT SHIFT. BELONGINGS WITH PATIENT AND BELONGINGS LIST SIGNED. NEEDS AND CONCERNS ADDRESSED. PATIENT WITH NO ACTIVE BLEEDING NOTED. PATIENT AMBULATORY WITH ASSISTANCE TO WHEELCHAIR. PATIENT WENT BACK HOME WITH DAUGHTER. MD AWARE OF DISCHARGE.
== END 2020-05-17 13:10 | disposition home or self-care (01) | DRG 377 ==
LOC: ER 21:18 → TELE2 05-14 00:05 → TELE 05-15 15:43 → MED 05-17 12:05
PROVIDERS: ADMIT Internal Medicine; ATTEND Internal Medicine
DX: K57.91 Diverticulosis of intestine, part unspecified, without perforation or abscess with bleeding (principal); N17.0 Acute kidney failure with tubular necrosis; I13.0 Hypertensive heart and chronic kidney disease with heart failure and stage 1 through stage 4 chronic kidney disease, or unspecified chronic kidney disease; I50.32 Chronic diastolic (congestive) heart failure; I25.10 Atherosclerotic heart disease of native coronary artery without angina pectoris; N40.0 Benign prostatic hyperplasia without lower urinary tract symptoms; K21.9 Gastro-esophageal reflux disease without esophagitis; J44.9 Chronic obstructive pulmonary disease, unspecified; N18.9 Chronic kidney disease, unspecified; E11.22 Type 2 diabetes mellitus with diabetic chronic kidney disease; F03.90 Unspecified dementia, unspecified severity, without behavioral disturbance, psychotic disturbance, mood disturbance, and anxiety; F41.0 Panic disorder [episodic paroxysmal anxiety]; F43.10 Post-traumatic stress disorder, unspecified; I25.2 Old myocardial infarction; I27.20 Pulmonary hypertension, unspecified; M19.90 Unspecified osteoarthritis, unspecified site; M81.0 Age-related osteoporosis without current pathological fracture; Z79.899 Other long term (current) drug therapy; Z82.49 Family history of ischemic heart disease and other diseases of the circulatory system; Z83.3 Family history of diabetes mellitus; Z86.59 Personal history of other mental and behavioral disorders; Z86.73 Personal history of transient ischemic attack (TIA), and cerebral infarction without residual deficits; Z87.11 Personal history of peptic ulcer disease; Z95.1 Presence of aortocoronary bypass graft; Z96.652 Presence of left artificial knee joint; I34.0 Nonrheumatic mitral (valve) insufficiency; K64.8 Other hemorrhoids
CPT/HCPCS: 36415; 71045-TC; 80048-TC; 80053-TC; 80061-TC; 80076-TC; 82728-TC; 82962-TC; 83540-TC; 83735-TC; 83880; 84100-TC; 84439-TC; 84443-TC; 84484-TC; 85025-TC; 85730-TC; 86850-TC; 87081-TC; 93307-TC; G0378; J1940; J7050; P9016-BL; U0003

== ENCOUNTER 2021-01-01 15:40 | Outpatient (CLI) | payer MEDICARE, OTHER ==
[~2021-01-01 15:40] MED LIST changes: -ASPI-1169 PO; -CLOP75TA15 PO; +CYAN-51 PO; -MELO-107 PO; +PANT40TA49 PO; +ZINC50TA39 PO
== END 2021-01-01 23:59 | disposition home or self-care (01) ==
LOC: MSC 15:40
PROVIDERS: ATTEND Internal Medicine
DX: I12.9 Hypertensive chronic kidney disease with stage 1 through stage 4 chronic kidney disease, or unspecified chronic kidney disease (principal); N18.4 Chronic kidney disease, stage 4 (severe); M10.9 Gout, unspecified; D50.9 Iron deficiency anemia, unspecified; E55.9 Vitamin D deficiency, unspecified; I25.10 Atherosclerotic heart disease of native coronary artery without angina pectoris; J44.9 Chronic obstructive pulmonary disease, unspecified; Z86.16 Personal history of COVID-19